=== PATIENT | female | born 1955 | race Caucasian/White ===

== ENCOUNTER 2018-07-21 13:29 | Emergency (ER) | payer OTHER, SELFPAY ==
[2018-07-21 13:36] VITALS: BP 105/53; PULSE 60; RESP 12; TEMP 36.3; O2SAT 98
--- NOTE | 2018-07-21 13:58 | ED.ALLEREA ---
HPI - Allergic Reaction General Chief complaint: Allergic Reaction Stated complaint: hives since 06/14, sob, swelling, CHF Time Seen by Provider: 07/21/18 13:57 Source: patient Mode of arrival: ambulatory Limitations: no limitations History of Present Illness HPI narrative: Patient is a 62-year-old female here for evaluation of hives. She states she has had the hives for several weeks if not months now. She has been on Benadryl. She states that last year at this time when she was in [place] she had similar symptoms. They went away. She stated that the hives have come back. Has occasional times were she is short of breath. She states the hives are very uncomfortable and painful and itching. She tried to contact her primary doctor however the [facility] has not contacted her back. She did state that there was a consult in for her to see Dermatology but has not seen them to this point. Related Data Home Medications Medication Instructions Recorded Confirmed Vitamin D3 1 cap PO DAILY 07/21/18 07/21/18 albuterol sulfate 1 puff INHALATION PRN PRN 07/21/18 07/21/18 aspirin 81 mg PO DAILY 07/21/18 07/21/18 fluoxetine 40 mg PO QPM 07/21/18 07/21/18 furosemide 40 mg PO DAILY 07/21/18 07/21/18 gabapentin 300 mg PO DAILY PRN 07/21/18 07/21/18 metoprolol tartrate 25 mg PO BID 07/21/18 07/21/18 multivitamin 1 tab PO DAILY 07/21/18 07/21/18 pantoprazole 40 mg PO DAILY 07/21/18 07/21/18 potassium chloride 10 meq PO DAILY 07/21/18 07/21/18 vitamin E 1 cap PO DAILY 07/21/18 07/21/18 Previous Rx's Medication Instructions Recorded prednisone 20 mg PO DAILY #35 tab 07/21/18 Allergies Allergy/AdvReac Type Severity Reaction Status Date / Time Lisinopril Allergy Unknown Uncoded 08/26/17 13:07 Review of Systems Constitutional Denies fever(s) and Denies headache(s) ENT Ears, Nose, Mouth, and Throat: Denies headache(s), Denies throat swelling and Denies tongue swelling Cardiovascular Reports chest pain and Reports dyspnea Respiratory Reports dyspnea Gastrointestinal Gastrointestinal: Denies abdominal pain, Denies nausea and Denies vomiting Musculoskeletal Reports myalgias and Reports arthralgias Integumentary/Breasts Denies dry skin, Reports pruritus, Denies lesions, Reports erythema, Reports rash and Reports sores Neurologic Denies headache(s) Hematologic/Lymphatic Denies easy bleeding and Denies easy bruising Allergic/Immunologic Reports urticaria, Denies throat swelling and Denies tongue swelling PFSH Medical History Hypertension (Acute) Social History lives independently: Yes Social History lives independently: Yes Exam Initial Vital Signs Initial Vital Signs: Vital Signs Temperature 97.4 F L 07/21/18 13:36 Pulse Rate 60 07/21/18 13:36 Respiratory Rate 12 07/21/18 13:36 Blood Pressure 105/53 L 07/21/18 13:36 Pulse Oximetry 98 07/21/18 13:36 Const General: cooperative, healthy appearing, well developed, well groomed and No acute distress Orientation: alert, awake and oriented x3 HENMT Head: normal to inspection and normocephalic Resp Effort & Inspection: normal respiratory effort Auscultation: clear to auscultation bilaterally Cardio Rate: regular rate Rhythm: regular rhythm GI Inspection: non-distended Palpation: soft Back/Spine/Pelvis Back: No CVA tenderness Skin Other: Patient with very well-defined hives. Located mostly on the bilateral forearms on the palms of the hands. No blistering. Neuro General: alert, awake and oriented x3 Extrem General: capillary refill normal Course Orders Ordered: ED Orders 07/21/18 14:00 Basic Metabolic Panel Stat Complete Blood Count AUTO DIFF Stat Thyroid Stimulating Hormone Stat Discontinued Medications Diphenhydramine HCl (Benadryl) 25 mg IV NOW ONE Stop: 07/21/18 14:24 Last Admin: 07/21/18 14:43 Dose: 25 mg Methylprednisolone (Solu-Medrol 125 Mg Vial) 125 mg IV NOW ONE Stop: 07/21/18 14:24 Last Admin: 07/21/18 14:43 Dose: 125 mg Vital Signs - 8 hr 07/21/18 13:36 07/21/18 15:30 07/21/18 16:11 Temperature 97.4 F L 97.3 F L Pulse Rate 60 75 67 Respiratory Rate 12 16 16 Blood Pressure 105/53 L 115/60 Blood Pressure [Left Arm] 117/48 L Pulse Oximetry 98 98 96 MDM - Allergic Reaction Lab Data Attestation: I reviewed the patient's lab results. Result diagrams: 07/21/18 14:00 07/21/18 14:00 Lab Results 07/21/18 07/21/18 07/21/18 Range/Units 14:00 14:00 14:00 WBC 6.1 (4.5-11.0) X10^3/uL RBC 4.67 (4.0-5.2) X10^6/uL Hgb 14.1 (12.0-16.0) g/dL Hct 42.3 (36-46) % MCV 90.4 (80-100) fL MCH 30.1 (26-34) PG MCHC 33.3 (30-36) % RDW 12.5 (11.6-14.8) % Plt Count 243 (150-400) X10^3/uL Neut % (Auto) 57.5 (50-75) % Lymph % (Auto) 32.9 (25-40) % Haines % (Auto) 7.3 (3-14) % Eos % (Auto) 1.8 L (2-4) % Baso % (Auto) 0.5 (0-2) % Neut # (Auto) 3500 (6195-7697) /uL Lymph # (Auto) 2000 (8766-1827) /uL Haines # (Auto) 400 (0-900) /uL Eos # (Auto) 100 (0-450) /uL Baso # (Auto) 0 (0-100) /uL Sodium 139 (137-145) mmol/L Potassium 3.6 (3.4-5.1) mmol/L Chloride 104 (98-107) mmol/L Carbon Dioxide 24 (22-32) mmol/L BUN 19 H (7-17) mg/dL Creatinine 0.80 (0.52-1.04) mg/dL Estimated GFR > 60.0 (>60) mL/min BUN/Creatinine Ratio 23.8 H (6-22) Glucose 90 (80-110) mg/dL Calcium 9.2 (8.4-10.2) mg/dL TSH 1.27 (0.47-4.68) uIU/mL ECG Data Attestation: I personally reviewed and interpreted this ECG as follows: Prior ECG tracings: not available for review Interpretation: Sinus rhythm the ventricular rate is 63 Normal QRS Normal QTC No ST T wave changes MDM Narrative Medical decision making narrative: Patient not in respiratory distress. Has had the eyes for several weeks. No new contacts. Had similar symptoms beginning last year however she was not in the local area during this time. Has been using Benadryl at home and also Atarax which she states has not been improving her symptoms. She states that the rash appears in certain areas and then goes away and appears in another area. Labs unremarkable. Unsure the exact etiology however I do not feel like this is anaphylaxis. I did not give her epinephrine. She reports improvement with the steroids and Benadryl here in the ER. Will send home with a course of steroids. She will contact her primary doctor to discuss the indications for referral to see Dermatology or marble setter. She was given return precautions. She expressed understanding and agreement with plan. Discharge Plan Departure Patient Disposition: Home Clinical Impression: Urticaria Discharge Date/Time: 07/21/18 16:11 Interventions: ED Discharge Assessment Last Done: 07/21/18 16:11 Instructions: DI for Hives Activity Restrictions/Additional Instructions: Take all of your medications as directed. Call your primary care doctor to discuss the indications for referral to see Dermatology or marble setter. Return to the emergency department for any new or worsening symptoms Prescriptions: New prednisone 20 mg tablet 20 mg PO DAILY Qty: 35 RF: 0 No Action multivitamin Tablet 1 tab PO DAILY RF: 0 fluoxetine 40 mg Capsule 40 mg PO QPM RF: 0 furosemide 40 mg Tablet 40 mg PO DAILY RF: 0 potassium chloride 10 mEq Capsule, Extended Release 10 meq PO DAILY RF: 0 aspirin 81 mg Tablet,Delayed Release (Dr/Ec) 81 mg PO DAILY RF: 0 gabapentin 300 mg Capsule 300 mg PO DAILY PRN (Reason: as directed) RF: 0 albuterol sulfate 90 mcg/actuation Hfa Aerosol Inhaler 1 puff INHALATION PRN PRN (Reason: Shortness Of Breath) RF: 0 metoprolol tartrate 25 mg Tablet 25 mg PO BID RF: 0 pantoprazole [address] For Susp In Packet 40 mg PO DAILY RF: 0 Vitamin D3 1 cap PO DAILY RF: 0 vitamin E 1 cap PO DAILY RF: 0 Referrals: Daphnie Landry [Primary Care Provider] -
[2018-07-21 14:35] LABS: Add Manual Diff / Slide Review NO; Basophils Absolute Auto 0 /uL (0-100); Basophils Percent Auto 0.5 % (0-2); Eosinophils Absolute Auto 100 /uL (0-450); Eosinophils Percent Auto 1.8 % (2-4); Hematocrit 42.3 % (36-46); Hemoglobin 14.1 g/dL (12.0-16.0); Lymphocytes Absolute Auto 2000 /uL (1100-4500); Lymphocytes Percent Auto 32.9 % (25-40); Mean Corpuscular HGB Conc 33.3 % (30-36); Mean Corpuscular Hemoglobin 30.1 PG (26-34); Mean Corpuscular Volume 90.4 fL (80-100); Monocytes Absolute Auto 400 /uL (0-900); Monocytes Percent Auto 7.3 % (3-14); Neutrophils Absolute Auto 3500 /uL (1500-7000); Neutrophils Percent Auto 57.5 % (50-75); Platelet Count 243 X10^3/uL (150-400); Red Blood Cell Count 4.67 X10^6/uL (4.0-5.2); Red Cell Distribution Width 12.5 % (11.6-14.8); White Blood Cell Count 6.1 X10^3/uL (4.5-11.0)
[2018-07-21 14:40] LABS: BUN Creatinine Ratio 23.8 (6-22); Blood Urea Nitrogen 19 mg/dL (7-17); Calcium 9.2 mg/dL (8.4-10.2); Carbon Dioxide 24 mmol/L (22-32); Chloride 104 mmol/L (98-107); Estimated Glomerular Filt Rate > 60.0 mL/min (>60); Glucose 90 mg/dL (80-110); HEMOLYSIS < 15 (0-50); Potassium 3.6 mmol/L (3.4-5.1); Sodium 139 mmol/L (137-145)
[2018-07-21] MEDS: diphenhydrAMINE 50 MG/ML VIAL 25 MG IV (14:43)
[2018-07-21] MEDS: methylPREDNISolone 125 MG/2 ML VIAL IV (14:43)
[2018-07-21 15:30] VITALS: BP 117/48; PULSE 75; RESP 16; O2SAT 98
[2018-07-21 16:11] VITALS: BP 115/60; PULSE 67; RESP 16; TEMP 36.3; O2SAT 96
[2018-07-21 16:37] LABS: Thyroid Stimulating Hormone 1.27 uIU/mL (0.47-4.68)
== END 2018-07-21 16:11 | disposition home or self-care (01) ==
PROVIDERS: Emergency Provider Emergency Medicine; PCP Hospitalist
DX: L50.9 Urticaria, unspecified (principal)
CPT/HCPCS: 36591; 80048; 84443; 85025; 93005; 93010; 96374; 96375; 99282; 99284; J1200; J2930

== ENCOUNTER 2021-12-31 18:04 | Emergency (ER) | payer OTHER, SELFPAY ==
[2021-12-31 18:13] VITALS: BP 120/62; PULSE 71; RESP 18; TEMP 36.6; O2SAT 96
--- NOTE | 2021-12-31 21:09 | ED.SKABFB ---
HPI - Skin/Abscess/Foreign Bdy General Chief complaint: Skin/Abscess/Foreign Body Stated complaint: Hives all over Time Seen by Provider: 12/31/21 20:53 Source: patient Mode of arrival: Ambulatory History of Present Illness HPI narrative: Patient states she has known idiopathic urticaria. Diagnosed 1 year ago. Had symptoms for 6 years prior to diagnosis. Has had full workup for this diagnosis. No known triggers recently. Patient here visiting from [place] but is moving back to the [facility]. She is originally from here. Patient states symptoms started this past . Hives coming and going different parts of the body. No oral swelling tongue swelling drooling or trouble breathing or neck tightness. This is not new for her. She states she usually gets Solu-Medrol intramuscular as well as Benadryl intramuscular and Pepcid p.o.. Then Medrol Dosepak and Benadryl and Pepcid prescription. Patient in no distress. Related Data Home Medications Medication Instructions Recorded Confirmed Vitamin D3 1 cap PO DAILY 07/21/18 07/21/18 albuterol sulfate 90 mcg/actuation 1 puff inhalation PRN PRN 07/21/18 07/21/18 aerosol inhaler Shortness Of Breath aspirin 81 mg tablet,delayed 81 mg PO DAILY 07/21/18 07/21/18 release fluoxetine 40 mg capsule 40 mg PO QPM 07/21/18 07/21/18 furosemide 40 mg tablet 40 mg PO DAILY 07/21/18 07/21/18 gabapentin 300 mg capsule 300 mg PO DAILY PRN as directed 07/21/18 07/21/18 metoprolol tartrate 25 mg tablet 25 mg PO BID 07/21/18 07/21/18 multivitamin 1 tab PO DAILY 07/21/18 07/21/18 pantoprazole 40 mg granules 40 mg PO DAILY 07/21/18 07/21/18 delayed-release for susp in packet potassium chloride 10 mEq 10 meq PO DAILY 07/21/18 07/21/18 capsule,extended release vitamin E 1 cap PO DAILY 07/21/18 07/21/18 Previous Rx's Medication Instructions Recorded prednisone 20 mg tablet 20 mg PO DAILY #35 tabs 07/21/18 diphenhydramine HCl 25 mg capsule 25 mg PO TID PRN allergic reaction 12/31/21 #20 caps famotidine 20 mg tablet (Pepcid) 20 mg PO BID #20 tabs 12/31/21 methylprednisolone 4 mg tablets in See Rx Instructions PO .COMPLEX 12/31/21 a dose pack (Medrol (Damián)) #21 ea Allergies Allergy/AdvReac Type Severity Reaction Status Date / Time Lisinopril Allergy Unknown Uncoded 12/31/21 18:16 Review of Systems Review of Systems Narrative: GENERAL: Denies chills, fatigue, malaise, fever, sweats. HEENT: Denies sinus pain, ear pain, sore throat RESPIRATORY: Denies dyspnea, cough CARDIOVASCULAR: Denies chest pain, palpitations GASTROINTESTINAL: Denies nausea, vomiting, abdominal pain : Denies dysuria, frequency, hematuria MUSCULOSKELETAL: denies muscle or bony pain SKIN: Positive for itching and rash, negative skin lesions NEUROLOGIC: Denies weakness, numbness ROS Unobtainable: All systems reviewed & are unremarkable except as noted in HPI and below Patient History Medical History Hypertension Social History lives independently: Yes Smoking Status: Current every day smoker Smoking Status: Current every day smoker Alcohol type: other Substance Use Type: does not use Exam Narrative Exam Narrative: GENERAL: in no distress, not toxic not dyspneic HEAD: Normocephalic. EYES: Pupils equal round No scleral icterus. ENT: Mucous membranes moist. No tongue lip or oral swelling. No drooling. No tongue elevation. NECK: Trachea midline. CARDIOVASCULAR: Regular rate and rhythm without murmurs RESPIRATORY: Clear to auscultation. Breath sounds equal bilaterally. No wheezes, rales, or rhonchi. Speaking full sentences. No respiratory distress GASTROINTESTINAL: Abdomen soft, non-tender EXTREMITIES: No gross deformities. NEURO: AOx4. SKIN: Warm and dry, I do see a few hives on the thighs. None on the back. None on the arms. None on the face. PSYCH: Not anxious, is cooperative Initial Vital Signs Initial Vital Signs: Vital Signs Temperature 98 F 12/31/21 18:13 Pulse Rate 71 12/31/21 18:13 Respiratory Rate 18 12/31/21 18:13 Blood Pressure 120/62 12/31/21 18:13 Pulse Oximetry 96 12/31/21 18:13 Oxygen Delivery Method 12/31/21 18:13 Course Course Course Narrative: No new issues during her stay Orders Ordered: Discontinued Medications Diphenhydramine HCl (Diphenhydramine 50 Mg/Ml Vial) 50 mg IM NOW ONE Stop: 12/31/21 21:08 Last Admin: 12/31/21 21:15 Dose: 50 mg Documented By: LAMAR Famotidine (Famotidine 20 Mg Tablet) 20 mg PO NOW ONE Stop: 12/31/21 21:09 Last Admin: 12/31/21 21:15 Dose: 20 mg Documented By: LAMAR Methylprednisolone (Methylprednisolone 125 Mg/2 Ml Vial) 125 mg IM NOW ONE Stop: 12/31/21 21:08 Last Admin: 12/31/21 21:15 Dose: 125 mg Documented By: LAMAR Reevaluation(s) Reevaluation #1: Patient agrees no laboratory studies indicated. She does not want IV. She states her usual cocktail works that she stated in the HPI. Return precautions reviewed with her. She has family at bedside Time: 21:16 Vital Signs Vital signs: Vital Signs - 8 hr 12/31/21 18:13 Temperature 98 F Pulse Rate 71 Respiratory Rate 18 Blood Pressure 120/62 Pulse Oximetry 96 Oxygen Delivery Method Room Air MDM - Skin/Abscess/Foreign Bdy Differential Diagnosis Differential diagnosis: Likely viral exanthem, urticaria, allergic reaction to drug, cellulitis, eczema, insect bites and contact dermatitis MDM Narrative Medical decision making narrative: Appropriate for discharge home. No laboratory studies indicated. Patient has been fully worked up in the past for idiopathic urticaria. She has known regimen for improving her symptoms. Return precautions reviewed with her. Prescriptions provided. Not toxic at discharge. Exam otherwise reassuring Discharge Plan Departure Patient Disposition: Home Clinical Impression: Idiopathic urticaria Instructions: DI for Hives Activity Restrictions/Additional Instructions: See family doctor in a week for re-evaluation. Prescriptions have been sent to your [place] pharmacy to be picked up tomorrow morning to resume. Return if worse if any questions concerns or any trouble breathing or any swelling in the mouth or lips or tongue. Prescriptions: New methylprednisolone [Medrol (Damián)] 4 mg tablets,dose pack See Rx Instructions .ROUTE .COMPLEX Qty: 21 0RF Rx Instructions: orally per package directions diphenhydramine HCl 25 mg capsule 25 mg PO TID PRN (Reason: allergic reaction) Qty: 20 0RF famotidine [Pepcid] 20 mg tablet 20 mg PO BID Qty: 20 0RF No Action multivitamin Tablet 1 tab PO DAILY fluoxetine 40 mg Capsule 40 mg PO QPM furosemide 40 mg Tablet 40 mg PO DAILY potassium chloride 10 mEq Capsule, Extended Release 10 meq PO DAILY aspirin 81 mg Tablet,Delayed Release (Dr/Ec) 81 mg PO DAILY gabapentin 300 mg Capsule 300 mg PO DAILY PRN (Reason: as directed) albuterol sulfate 90 mcg/actuation Hfa Aerosol Inhaler 1 puff INHALATION PRN PRN (Reason: Shortness Of Breath) metoprolol tartrate 25 mg Tablet 25 mg PO BID pantoprazole [address] For Susp In Packet 40 mg PO DAILY Vitamin D3 1 cap PO DAILY vitamin E 1 cap PO DAILY prednisone 20 mg tablet 20 mg PO DAILY Qty: 35 0RF Rx Instructions: Take 3 tabs PO QD for 5 days then 2 tabs PO QD for 5 days the n1 tab Po QD for 5 days then 1/2 tab PO QD for 5 days Referrals: Daphnie Landry MD [Primary Care Provider] - Visit Report Forms: Patient Portal/API
[2021-12-31] MEDS: FAMOTIDINE 20 MG TABLET PO (21:15)
[2021-12-31] MEDS: diphenhydrAMINE 50 MG/ML VIAL IM (21:15)
[2021-12-31] MEDS: methylPREDNISolone 125 MG/2 ML VIAL IM (21:15)
== END 2021-12-31 21:25 | disposition home or self-care (01) ==
PROVIDERS: Emergency Provider Emergency Medicine; PCP Hospitalist
DX: L50.1 Idiopathic urticaria (principal)
CPT/HCPCS: 96372; 99283; A9270; J1200; J2930

== ENCOUNTER 2023-03-21 12:46 | Emergency (ER) | payer OTHER, SELFPAY ==
[2023-03-21 13:16] VITALS: BP 110/60; PULSE 68; RESP 20; TEMP 36.9; O2SAT 96; BMI 31.7
--- NOTE | 2023-03-21 15:12 | ED_ITS ---
HPI - Skin/Abscess/Foreign Bdy General Chief complaint: Skin/Abscess/Foreign Body Stated complaint: HIVES Time Seen by Provider: 03/21/23 15:12 Source: patient Mode of arrival: Ambulatory Limitations: no limitations History of Present Illness HPI narrative: Patient 67-year-old female history of idiopathic urticaria presents today with urticaria ongoing for 1 week. She is been taking all the urpt-sco-mmylswq medi cations she has previously. She is been here twice before and received Solu- Medrol IM. She is requesting Solu-Medrol IM [facility] prescription for prednisone. She has no shortness of breath difficulty breathing tongue swelling or other symptoms Related Data Home Medications Medication Instructions Recorded Confirmed Vitamin D3 1 cap PO DAILY 07/21/18 07/21/18 albuterol sulfate 90 mcg/actuation 1 puff inhalation PRN PRN 07/21/18 07/21/18 aerosol inhaler Shortness Of Breath aspirin 81 mg tablet,delayed 81 mg PO DAILY 07/21/18 07/21/18 release fluoxetine 40 mg capsule 40 mg PO QPM 07/21/18 07/21/18 furosemide 40 mg tablet 40 mg PO DAILY 07/21/18 07/21/18 gabapentin 300 mg capsule 300 mg PO DAILY PRN as directed 07/21/18 07/21/18 metoprolol tartrate 25 mg tablet 25 mg PO BID 07/21/18 07/21/18 multivitamin 1 tab PO DAILY 07/21/18 07/21/18 pantoprazole 40 mg granules 40 mg PO DAILY 07/21/18 07/21/18 delayed-release for susp in packet potassium chloride 10 mEq 10 meq PO DAILY 07/21/18 07/21/18 capsule,extended release vitamin E 1 cap PO DAILY 07/21/18 07/21/18 Previous Rx's Medication Instructions Recorded prednisone 20 mg tablet 20 mg PO DAILY #35 tabs 07/21/18 diphenhydramine HCl 25 mg capsule 25 mg PO TID PRN allergic reaction 12/31/21 #20 caps famotidine 20 mg tablet (Pepcid) 20 mg PO BID #20 tabs 12/31/21 methylprednisolone 4 mg tablets in See Rx Instructions PO .COMPLEX 12/31/21 a dose pack (Medrol (Damián)) #21 ea prednisone 20 mg tablet 40 mg (2 x 20 mg) PO DAILY #10 tabs 03/21/23 Allergies Allergy/AdvReac Type Severity Reaction Status Date / Time Lisinopril Allergy Unknown Uncoded 03/21/23 13:23 Patient History Medical History Hypertension Social History lives independently: Yes Smoking Status: Current every day smoker Smoking Status: Current every day smoker Alcohol type: other Substance Use Type: does not use Exam Initial Vital Signs Initial Vital Signs: Vital Signs Temperature 98.4 F 03/21/23 13:16 Pulse Rate 68 03/21/23 13:16 Respiratory Rate 20 03/21/23 13:16 Blood Pressure 110/60 03/21/23 13:16 Pulse Oximetry 96 03/21/23 13:16 Oxygen Delivery Method Room Air 03/21/23 13:16 GENERAL: Alert well-appearing 67-year-old female CARDIOVASCULAR: peripheral pulses in tact, cap refill <2 sec RESPIRATORY: No respiratory distress, speaks in full sentences without difficulty, no stridor no obvious tongue swelling or lip swelling EXTREMITIES: Normal range of motion, no clubbing or edema. Neurovascularly intact NEUROLOGICAL: Cranial nerves II through XII grossly intact. Normal gait and speech. SKIN: Urticaria noted on arms and now Course Orders Ordered: Discontinued Medications Methylprednisolone (Methylprednisolone 125 Mg/2 Ml Vial) 125 mg IM NOW ONE Stop: 03/21/23 15:18 Last Admin: 03/21/23 15:28 Dose: Not Given Documented By: JAYNE Methylprednisolone (Methylprednisolone 125 Mg/2 Ml Vial) 60 mg IM NOW ONE Stop: 03/21/23 15:22 Last Admin: 03/21/23 15:32 Dose: 60 mg Documented By: KF Vital Signs Vital signs: Vital Signs - 8 hr 03/21/23 13:16 Temperature 98.4 F Pulse Rate 68 Respiratory Rate 20 Blood Pressure 110/60 Pulse Oximetry 96 Oxygen Delivery Method Room Air MDM - Skin/Abscess/Foreign Bdy MDM Narrative Medical decision making narrative: Patient is 67-year-old female who presents with idiopathic urticaria she is had this many times in the past. Requesting prednisone and Solu-Medrol. She rep orts it prednisone does not always work. She had Solu-Medrol IM. No evidence of anaphylaxis. Discharge Plan Departure Patient Disposition: Home Clinical Impression: Urticaria Instructions: DI for Hives Activity Restrictions/Additional Instructions: *You have been diagnosed with urticaria *What to do: Continue taking all pulp-tla-kusumnx medications as previously *Continue to take medications as directed Prednisone 40 mg once a day for 5 days--> [facility] *Follow up with your primary care provider in 2-3 days or call [phone] *Return to ER if you should have increased difficulty breathing worsening hives fever or any new, worsening or concerning symptoms Prescriptions: New prednisone 20 mg tablet 40 mg PO DAILY Qty: 10 0RF No Action multivitamin Tablet 1 tab PO DAILY fluoxetine 40 mg Capsule 40 mg PO QPM furosemide 40 mg Tablet 40 mg PO DAILY potassium chloride 10 mEq Capsule, Extended Release 10 meq PO DAILY aspirin 81 mg Tablet,Delayed Release (Dr/Ec) 81 mg PO DAILY gabapentin 300 mg Capsule 300 mg PO DAILY PRN (Reason: as directed) albuterol sulfate 90 mcg/actuation Hfa Aerosol Inhaler 1 puff INHALATION PRN PRN (Reason: Shortness Of Breath) metoprolol tartrate 25 mg Tablet 25 mg PO BID pantoprazole [address] For Susp In Packet 40 mg PO DAILY Vitamin D3 1 cap PO DAILY vitamin E 1 cap PO DAILY prednisone 20 mg tablet 20 mg PO DAILY Qty: 35 0RF Rx Instructions: Take 3 tabs PO QD for 5 days then 2 tabs PO QD for 5 days the n1 tab Po QD for 5 days then 1/2 tab PO QD for 5 days methylprednisolone [Medrol (Damián)] 4 mg tablets,dose pack See Rx Instructions .ROUTE .COMPLEX Qty: 21 0RF Rx Instructions: orally per package directions diphenhydramine HCl 25 mg capsule 25 mg PO TID PRN (Reason: allergic reaction) Qty: 20 0RF famotidine [Pepcid] 20 mg tablet 20 mg PO BID Qty: 20 0RF Referrals: Miscellaneous,Doctor, MD [Primary Care Provider] - Stand Alone Forms: Patient Portal/API
[2023-03-21] MEDS: methylPREDNISolone 125 MG/2 ML VIAL 60 MG IM (15:32)
== END 2023-03-21 15:38 | disposition home or self-care (01) ==
PROVIDERS: Emergency Provider Emergency Medicine
DX: L50.9 Urticaria, unspecified (principal)
CPT/HCPCS: 96372; 99283; J2930

== ENCOUNTER 2023-03-29 12:41 | Emergency (ER) | payer OTHER, SELFPAY ==
[2023-03-29] VITALS (10 sets, daily range): BP systolic 106–137; BP diastolic 55–66; PULSE 67–79; RESP 14–23; TEMP 36.8; O2SAT 92–99; BMI 33.4
[2023-03-29] MEDS: methylPREDNISolone 125 MG/2 ML VIAL IV (13:07)
[2023-03-29] MEDS: EPINEPHrine 1 MG/ML 0.3 MG IM (13:08)
[2023-03-29] MEDS: FAMOTIDINE 20 MG/2 ML VIAL IV (13:08)
--- NOTE | 2023-03-29 13:08 | ED.SOB ---
HPI - SOB/Dyspnea General Chief Complaint: Shortness of Breath/Dyspnea Stated Complaint: HIVES/TROUBLE SWALLOWING Time Seen by Provider: 03/29/23 12:49 Source: patient Mode of arrival: Ambulatory Limitations: no limitations History of Present Illness HPI Narrative: Patient 67-year-old female who presents with idiopathic urticaria. She was seen and evaluated by myself on March 21 that time she requested Solu-Medrol injection and prednisone prescription. She reports that it did help the urticaria went away however when the prednisone. Quickly came back. She now feels like she is having difficulty swallowing which started last night. She reports that all of her joints ache she has burning all over her skin. She actually has an appointment with Dermatology tomorrow. She reports that she feels tightness in her neck and difficulty swallowing her saliva but she seems to be managing her saliva and no obvious stridor or respiratory distress. Related Data Home Medications Medication Instructions Recorded Confirmed Vitamin D3 1 cap PO DAILY 07/21/18 07/21/18 albuterol sulfate 90 mcg/actuation 1 puff inhalation PRN PRN 07/21/18 07/21/18 aerosol inhaler Shortness Of Breath aspirin 81 mg tablet,delayed 81 mg PO DAILY 07/21/18 07/21/18 release fluoxetine 40 mg capsule 40 mg PO QPM 07/21/18 07/21/18 furosemide 40 mg tablet 40 mg PO DAILY 07/21/18 07/21/18 gabapentin 300 mg capsule 300 mg PO DAILY PRN as directed 07/21/18 07/21/18 metoprolol tartrate 25 mg tablet 25 mg PO BID 07/21/18 07/21/18 multivitamin 1 tab PO DAILY 07/21/18 07/21/18 pantoprazole 40 mg granules 40 mg PO DAILY 07/21/18 07/21/18 delayed-release for susp in packet potassium chloride 10 mEq 10 meq PO DAILY 07/21/18 07/21/18 capsule,extended release vitamin E 1 cap PO DAILY 07/21/18 07/21/18 Previous Rx's Medication Instructions Recorded prednisone 20 mg tablet 20 mg PO DAILY #35 tabs 07/21/18 diphenhydramine HCl 25 mg capsule 25 mg PO TID PRN allergic reaction 12/31/21 #20 caps famotidine 20 mg tablet (Pepcid) 20 mg PO BID #20 tabs 12/31/21 methylprednisolone 4 mg tablets in See Rx Instructions PO .COMPLEX 12/31/21 a dose pack (Medrol (Damián)) #21 ea prednisone 20 mg tablet 40 mg (2 x 20 mg) PO DAILY #10 tabs 03/21/23 prednisone 10 mg tablet 10 mg PO DAILY #30 tabs 03/29/23 Allergies Allergy/AdvReac Type Severity Reaction Status Date / Time Lisinopril Allergy Unknown Uncoded 03/29/23 12:59 Review of Systems Review of Systems ROS Unobtainable: All systems reviewed & are unremarkable except as noted in HPI and below Patient History Medical History Hypertension Social History lives independently: Yes Smoking Status: Current every day smoker Smoking Status: Current every day smoker Alcohol type: other Substance Use Type: does not use Exam Initial Vital Signs Initial Vital Signs: Vital Signs Temperature 98.3 F 03/29/23 12:52 Pulse Rate 67 03/29/23 12:52 Respiratory Rate 20 03/29/23 12:52 Blood Pressure 137/63 03/29/23 12:52 Pulse Oximetry 92 03/29/23 12:52 Oxygen Delivery Method Room Air 03/29/23 12:52 GENERAL: Alert 67-year-old female and in no acute distress. HEENT: Head atraumatic,EOMI, pupils reactive, face symmetric, moist mucous membranes PHARYNX: No uvula swelling no tongue swollen managing secretions CARDIOVASCULAR: Regular rate and rhythm without murmurs, rubs or gallops. RESPIRATORY: Breath sounds equal bilaterally, no wheezes rales or rhonchi. ABDOMEN: Soft, nontender. Normoactive bowel sounds all 4 quadrants. No guarding or rebound. EXTREMITIES: Normal range of motion, no clubbing or edema. Neurovascularly intact NEUROLOGICAL: Alert and oriented x4. SKIN: Diffuse hives all over body blanchable no petechiae no vesicles Course Orders Ordered: ED Orders 03/29/23 12:55 CBC Auto Diff [Complete Blood Count AUTO DIFF] Stat CMP [Comprehensive Metabolic Panel] Stat Discontinued Medications Epinephrine HCl (Epinephrine 1 Mg/Ml) 0.3 mg IM NOW ONE Stop: 03/29/23 13:01 Last Admin: 03/29/23 13:08 Dose: 0.3 mg Documented By: DAPHNE Famotidine (Famotidine 20 Mg/2 Ml Vial) 20 mg IV NOW BETHANY Last Admin: 03/29/23 13:08 Dose: 20 mg Documented By: DAPHNE Methylprednisolone (Methylprednisolone 125 Mg/2 Ml Vial) 125 mg IV NOW ONE Stop: 03/29/23 13:01 Last Admin: 03/29/23 13:07 Dose: 125 mg Documented By: DAPHNE Vital Signs Vital signs: Vital Signs - 8 hr 03/29/23 12:52 03/29/23 12:55 03/29/23 12:55 Temperature 98.3 F Pulse Rate 67 67 Respiratory Rate 20 20 Blood Pressure 137/63 117/61 Pulse Oximetry 92 97 Oxygen Delivery Method Room Air 03/29/23 13:00 03/29/23 13:00 03/29/23 13:15 Temperature Pulse Rate 69 72 Respiratory Rate 14 20 Blood Pressure 117/66 Pulse Oximetry 99 97 Oxygen Delivery Method 03/29/23 13:15 03/29/23 13:30 03/29/23 13:30 Temperature Pulse Rate 69 Respiratory Rate 20 Blood Pressure 123/65 116/63 Pulse Oximetry 95 Oxygen Delivery Method 03/29/23 13:45 03/29/23 13:45 03/29/23 14:00 Temperature Pulse Rate 79 Respiratory Rate 23 Blood Pressure 118/59 L 106/55 L Pulse Oximetry 96 Oxygen Delivery Method 03/29/23 14:00 03/29/23 14:15 03/29/23 14:15 Temperature Pulse Rate 74 77 Respiratory Rate 20 19 Blood Pressure 109/56 L Pulse Oximetry 93 94 Oxygen Delivery Method 03/29/23 14:30 03/29/23 14:30 03/29/23 14:45 Temperature Pulse Rate 75 74 Respiratory Rate 18 17 Blood Pressure 117/58 L Pulse Oximetry 92 Oxygen Delivery Method 03/29/23 14:45 Temperature Pulse Rate Respiratory Rate Blood Pressure 115/55 L Pulse Oximetry Oxygen Delivery Method MDM - SOB/Dyspnea Lab Data 03/29/23 12:55 03/29/23 12:55 Labs: Lab Results 03/29/23 Range/Units 12:55 WBC 14.5 H (4.5-11.0) X10^3/uL RBC 5.09 (4.0-5.2) X10^6/uL Hgb 16.0 (12.0-16.0) g/dL Hct 47.1 H (36-46) % MCV 92.6 (80-100) fL MCH 31.4 (26-34) PG MCHC 34.0 (30-36) % RDW 13.0 (11.6-14.8) % Plt Count 274 (150-400) X10^3/uL Neut % (Auto) 80.3 H (50-75) % Lymph % (Auto) 13.8 L (25-40) % [place] % (Auto) 4.9 (3-14) % Eos % (Auto) 0.6 L (2-4) % Baso % (Auto) 0.4 (0-2) % Neut # (Auto) 71440 H (7401-1430) /uL Lymph # (Auto) 2000 (2367-4010) /uL [place] # (Auto) 700 (0-900) /uL Eos # (Auto) 100 (0-450) /uL Baso # (Auto) 100 (0-100) /uL Sodium 134 L (137-145) mmol/L Potassium 4.3 (3.4-5.1) mmol/L Chloride 102 (98-107) mmol/L Carbon Dioxide 25 (22-32) mmol/L BUN 20 H (7-17) mg/dL Creatinine 0.80 (0.52-1.04) mg/dL Estimated GFR > 60 (>60) mL/min BUN/Creatinine Ratio 25.0 H (6-22) Glucose 108 (80-110) mg/dL Calcium 9.0 (8.4-10.2) mg/dL Total Bilirubin 0.8 (0.2-1.3) mg/dL AST 27 (14-36) IU/L ALT 23 (<35) IU/L Alkaline Phosphatase 101 (38-126) U/L Total Protein 7.4 (6.3-8.2) g/dL Albumin 4.3 (3.5-5.0) g/dL Globulin 3.1 (1.7-4.1) g/dL Albumin/Globulin Ratio 1.4 (1.0-2.8) MDM Narrative Medical decision making narrative: Patient is 67-year-old female who presents today with hives and urticaria. She reports that they did improve after prednisone however quickly turned. She is compliant with Dermatology has an appointment. She feels like she is having swelling and difficulty swallowing. For this reason she is getting epinephrine Solu-Medrol and Pepcid. Her hives remain but the breathing and tightness in her throat improve after epinephrine. She feels better. We discussed her long-term prednisone he is not ideal and can have serious side effects. Labs have been reviewed leukocytosis unlikely infectious. Electrolytes are stable sodium slightly low 134 but others are within normal limits. Discharge Plan Departure Patient Disposition: Home Clinical Impression: Chronic idiopathic urticaria Instructions: DI for Hives Activity Restrictions/Additional Instructions: *You have been diagnosed with acute on chronic urticaria *What to do: *Continue to take medications as directed--> [facility] Prednisone 40 mg once a day for 3 days, 30 mg once a day for 3 days, 20 mg once a day for 3 days, 10 mg once a day for 3 days *Follow up with your primary care provider in 2-3 days or call [phone] Follow-up with dermatology tomorrow *Return to ER if you should have difficulty breathing or any new, worsening or concerning symptoms Prescriptions: New prednisone 10 mg tablet 10 mg PO DAILY Qty: 30 0RF Rx Instructions: day 1-3: 40 mg once a day day 4-6: 30 mg once a day day 7-9: 20 mg once a day day 10-12: 10 mg once a day No Action multivitamin Tablet 1 tab PO DAILY fluoxetine 40 mg Capsule 40 mg PO QPM furosemide 40 mg Tablet 40 mg PO DAILY potassium chloride 10 mEq Capsule, Extended Release 10 meq PO DAILY aspirin 81 mg Tablet,Delayed Release (Dr/Ec) 81 mg PO DAILY gabapentin 300 mg Capsule 300 mg PO DAILY PRN (Reason: as directed) albuterol sulfate 90 mcg/actuation Hfa Aerosol Inhaler 1 puff INHALATION PRN PRN (Reason: Shortness Of Breath) metoprolol tartrate 25 mg Tablet 25 mg PO BID pantoprazole [address] For Susp In Packet 40 mg PO DAILY Vitamin D3 1 cap PO DAILY vitamin E 1 cap PO DAILY prednisone 20 mg tablet 20 mg PO DAILY Qty: 35 0RF Rx Instructions: Take 3 tabs PO QD for 5 days then 2 tabs PO QD for 5 days the n1 tab Po QD for 5 days then 1/2 tab PO QD for 5 days methylprednisolone [Medrol (Damián)] 4 mg tablets,dose pack See Rx Instructions .ROUTE .COMPLEX Qty: 21 0RF Rx Instructions: orally per package directions diphenhydramine HCl 25 mg capsule 25 mg PO TID PRN (Reason: allergic reaction) Qty: 20 0RF famotidine [Pepcid] 20 mg tablet 20 mg PO BID Qty: 20 0RF prednisone 20 mg tablet 40 mg PO DAILY Qty: 10 0RF Referrals: Miscellaneous,Doctor, MD [Primary Care Provider] - Stand Alone Forms: Patient Portal/API
[2023-03-29 13:11] LABS: Add Manual Diff / Slide Review NO; Basophils Absolute Auto 100 /uL (0-100); Basophils Percent Auto 0.4 % (0-2); Eosinophils Absolute Auto 100 /uL (0-450); Eosinophils Percent Auto 0.6 % (2-4); Hematocrit 47.1 % (36-46); Lymphocytes Absolute Auto 2000 /uL (1100-4500); Lymphocytes Percent Auto 13.8 % (25-40); Mean Corpuscular Hemoglobin 31.4 PG (26-34); Mean Corpuscular Volume 92.6 fL (80-100); Monocytes Absolute Auto 700 /uL (0-900); Monocytes Percent Auto 4.9 % (3-14); Neutrophils Absolute Auto 11600 /uL (1500-7000); Neutrophils Percent Auto 80.3 % (50-75); Platelet Count 274 X10^3/uL (150-400); Red Blood Cell Count 5.09 X10^6/uL (4.0-5.2); White Blood Cell Count 14.5 X10^3/uL (4.5-11.0)
[2023-03-29 13:15] LABS: Alanine Aminotransferase 23 IU/L (<35); Albumin 4.3 g/dL (3.5-5.0); Albumin Globulin Ratio 1.4 (1.0-2.8); Alkaline Phosphatase 101 U/L (38-126); Aspartate Aminotransferase 27 IU/L (14-36); Bilirubin Total 0.8 mg/dL (0.2-1.3); Blood Urea Nitrogen 20 mg/dL (7-17); Carbon Dioxide 25 mmol/L (22-32); Chloride 102 mmol/L (98-107); Estimated Glomerular Filt Rate > 60 mL/min (>60); Globulin 3.1 g/dL (1.7-4.1); Glucose 108 mg/dL (80-110); Sodium 134 mmol/L (137-145); Total Protein 7.4 g/dL (6.3-8.2)
[2023-03-29 13:23] LABS: HEMOLYSIS 116 (0-50)
[2023-03-29 13:24] LABS: Potassium 4.3 mmol/L (3.4-5.1)
--- NOTE | 2023-03-29 14:07 | PC.NURSE ---
pt stated that was beginning to feel better. Rash still appears on arms hands an feet, but pt states that she is no longer itchy.
== END 2023-03-29 14:50 | disposition home or self-care (01) ==
PROVIDERS: Emergency Provider Emergency Medicine
DX: L50.1 Idiopathic urticaria (principal); Z79.899 Other long term (current) drug therapy
CPT/HCPCS: 36415; 80053; 85025; 96372; 96374; 96375; 99284; J0171; J2930

== ENCOUNTER 2023-04-13 11:13 | Emergency (ER) | payer OTHER, SELFPAY ==
[2023-04-13] VITALS (11 sets, daily range): BP systolic 118–136; BP diastolic 56–70; PULSE 88–108; RESP 16–24; TEMP 36.6–37.1; O2SAT 93–99; BMI 31.8
--- NOTE | 2023-04-13 11:25 | DI.RAD.S_ITS ---
PROCEDURE: XR CHEST 1V INDICATIONS: chest pain TECHNIQUE: One view of the chest was acquired. COMPARISON: [facility], , CHEST 1 VIEW, 04/19/2009, 21:54. FINDINGS: Surgical changes and devices: None. Lungs and pleura: Lungs are clear. No pleural effusions or pneumothorax. Mediastinum: Mediastinal contours appear normal. Heart size is at the upper limits of normal, stable. Bones and chest wall: No suspicious bony lesions. Overlying soft tissues appear unremarkable. IMPRESSION: 1. No acute cardiopulmonary process. 2. Heart size is at the upper limits of normal, stable. Dictated by: Stephanie Boo M.D. on 04/13/2023 at 12:11 Approved by: Stephanie Boo M.D. on 04/13/2023 at 12:13
[2023-04-13] MEDS: DEXAMETHASONE 10 MG/ML VIAL IV (11:31)
[2023-04-13] MEDS: FAMOTIDINE 20 MG/2 ML VIAL IV (11:31)
[2023-04-13] MEDS: diphenhydrAMINE 50 MG/ML VIAL IV (11:31)
[2023-04-13 11:33] LABS: Add Manual Diff / Slide Review NO; Basophils Absolute Auto 0 /uL (0-100); Basophils Percent Auto 0.2 % (0-2); Eosinophils Absolute Auto 100 /uL (0-450); Eosinophils Percent Auto 0.5 % (2-4); Hematocrit 47.2 % (36-46); Hemoglobin 15.9 g/dL (12.0-16.0); Lymphocytes Absolute Auto 2000 /uL (1100-4500); Lymphocytes Percent Auto 15.8 % (25-40); Mean Corpuscular HGB Conc 33.8 % (30-36); Mean Corpuscular Hemoglobin 31.5 PG (26-34); Mean Corpuscular Volume 93.2 fL (80-100); Monocytes Absolute Auto 300 /uL (0-900); Monocytes Percent Auto 2.6 % (3-14); Neutrophils Absolute Auto 10400 /uL (1500-7000); Neutrophils Percent Auto 80.9 % (50-75); Platelet Count 257 X10^3/uL (150-400); Red Blood Cell Count 5.07 X10^6/uL (4.0-5.2); Red Cell Distribution Width 13.3 % (11.6-14.8); White Blood Cell Count 12.8 X10^3/uL (4.5-11.0)
--- NOTE | 2023-04-13 11:40 | PC.NURSE ---
Pt reports being seen in ED about 1 month ago for chronic ideopathic hives. Pt reports being given steroids, benadryl and epi and pt was discharged. pt returns today and says that the hives never fully went away and that they are the worst that she have ever had them. pt rates pain as a 10/10 that she describes as a throbbing and itching all over her body. Hives and red blotches noted bilaterally on all 4 extremities and on pt's trunk. Pt states that she is having some cp and has a hx of NM and stent. DR Grace notified.
[2023-04-13 11:44] LABS: Alanine Aminotransferase 23 IU/L (<35); Albumin 4.1 g/dL (3.5-5.0); Albumin Globulin Ratio 1.3 (1.0-2.8); Alkaline Phosphatase 100 U/L (38-126); Aspartate Aminotransferase 19 IU/L (14-36); Bilirubin Total 0.9 mg/dL (0.2-1.3); Blood Urea Nitrogen 20 mg/dL (7-17); Calcium 9.4 mg/dL (8.4-10.2); Carbon Dioxide 27 mmol/L (22-32); Chloride 97 mmol/L (98-107); Creatine Kinase < 20 U/L (30-135); Estimated Glomerular Filt Rate > 60 mL/min (>60); Globulin 3.2 g/dL (1.7-4.1); Glucose 129 mg/dL (80-110); HEMOLYSIS 17 (0-50); Potassium 3.4 mmol/L (3.4-5.1); Sodium 135 mmol/L (137-145); Total Protein 7.3 g/dL (6.3-8.2)
[2023-04-13 11:56] LABS: Troponin I < 0.012 ng/mL (0.01-0.034)
--- NOTE | 2023-04-13 11:58 | PC.NURSE ---
Pt reports that she feels slightly better after medications. Pt c/o numbness or tingling in her feet.
--- NOTE | 2023-04-13 12:31 | ED.SKABFB ---
HPI - Skin/Abscess/Foreign Bdy <Elise Iglesias PA-C - Last Filed: 04/13/23 14:59> General Chief complaint: Skin/Abscess/Foreign Body Stated complaint: hives Time Seen by Provider: 04/13/23 11:21 Source: patient Mode of arrival: Ambulatory Limitations: no limitations History of Present Illness HPI narrative: 67-year-old female with past medical history chronic idiopathic urticaria, [place] presents to the ED with ongoing urticaria for a month. Patient was seen in the ED on 03/21/2023 and 03/29/2023 for the same complaint. Patient was treated with Pepcid AC, Benadryl, steroids. Patient has had multiple rounds of prednisone with no improvement to her rash. Patient states that her rash started about a month ago since she had missed 1 of her allergy shots of Omalizumab. Patient obtains her medications from the [place] and self injects, however since she moved recently, there was a delay in getting her medications which is why she missed a dose. Patient states that she has had the chronic urticaria for 6 years, has missed a dose here and there which does flare-up her hives. However the condition was brought quickly under control with steroid shots in the ED. [facility] and self injected 5 days ago with no improvement to her rash. Patient complains of overall fatigue, not feeling well, mild nausea, epigastric pain. Patient also endorses a 20 minute episode of left-sided chest pain earlier this morning, was unable to locate her nitroglycerin, however the chest pain subsided spontaneously in 20 minutes. Patient currently is not experiencing chest pain, shortness of breath, fever, chills, vomiting, lightheadedness, dizziness, syncope. 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 Related Data Home Medications Medication Instructions Recorded Confirmed Vitamin D3 1 cap PO DAILY 07/21/18 07/21/18 albuterol sulfate 90 mcg/actuation 1 puff inhalation PRN PRN 07/21/18 07/21/18 aerosol inhaler Shortness Of Breath aspirin 81 mg tablet,delayed 81 mg PO DAILY 07/21/18 07/21/18 release fluoxetine 40 mg capsule 40 mg PO QPM 07/21/18 07/21/18 furosemide 40 mg tablet 40 mg PO DAILY 07/21/18 07/21/18 gabapentin 300 mg capsule 300 mg PO DAILY PRN as directed 07/21/18 07/21/18 metoprolol tartrate 25 mg tablet 25 mg PO BID 07/21/18 07/21/18 multivitamin 1 tab PO DAILY 07/21/18 07/21/18 pantoprazole 40 mg granules 40 mg PO DAILY 07/21/18 07/21/18 delayed-release for susp in packet potassium chloride 10 mEq 10 meq PO DAILY 07/21/18 07/21/18 capsule,extended release vitamin E 1 cap PO DAILY 07/21/18 07/21/18 Previous Rx's Medication Instructions Recorded prednisone 20 mg tablet 20 mg PO DAILY #35 tabs 07/21/18 diphenhydramine HCl 25 mg capsule 25 mg PO TID PRN allergic reaction 12/31/21 #20 caps famotidine 20 mg tablet (Pepcid) 20 mg PO BID #20 tabs 12/31/21 methylprednisolone 4 mg tablets in See Rx Instructions PO .COMPLEX 12/31/21 a dose pack (Medrol (Damián)) #21 ea prednisone 20 mg tablet 40 mg (2 x 20 mg) PO DAILY #10 tabs 03/21/23 prednisone 10 mg tablet 10 mg PO DAILY #30 tabs 03/29/23 Allergies Allergy/AdvReac Type Severity Reaction Status Date / Time Lisinopril Allergy Unknown Uncoded 03/29/23 12:59 Review of Systems <Elise Iglesias PA-C - Last Filed: 04/13/23 14:59> Constitutional Constitutional: Denies chills, Reports fatigue, Denies fever(s), Denies frequent falls, Denies lethargy and Denies weakness Eyes Eyes: Denies change in vision, Denies eye discharge, Denies irritation and Denies loss of vision ENT Ears, Nose, Mouth, and Throat: Denies change in voice, Denies dizziness, Denies neck pain, Denies sore throat and Denies throat swelling Cardiovascular Cardiovascular: Reports chest pain, Denies irregular heart rhythm, Denies lightheadedness, Denies palpitations, Denies dyspnea, Denies dyspnea on exertion and Denies orthopnea Respiratory Respiratory: Denies cough, Denies dyspnea, Denies dyspnea on exertion and Denies wheezing Gastrointestinal Gastrointestinal: Reports abdominal pain, Denies change in bowel habits, Denies diarrhea, Reports nausea and Denies vomiting Musculoskeletal Musculoskeletal: Denies neck pain and Denies numbness Integumentary/Breasts Skin/Breast: Denies pruritus, Denies erythema, Reports rash and Denies wounds Neurologic Neurologic: Denies behavioral changes, Denies confusion, Denies dizziness, Denies frequent falls, Denies loss of vision, Denies numbness and Denies weakness Psychiatric Psychiatric: Denies anxiety, Denies behavioral changes, Denies confusion, Denies depression, Denies homicidal ideation and Denies suicidal ideation Endocrine Endocrine: Reports fatigue, Denies flushing and Denies palpitations Hematologic/Lymphatic Hematologic/Lymphatic: Denies easy bruising Allergic/Immunologic Allergic/Immunologic: Denies urticaria, Denies throat swelling and Denies wheezing Patient History <Elise Iglesias PA-C - Last Filed: 04/13/23 14:59> Medical History Hypertension Social History lives independently: Yes Smoking Status: Current every day smoker Smoking Status: Current every day smoker Alcohol type: other Substance Use Type: does not use Exam <Elise Iglesias PA-C - Last Filed: 04/13/23 14:59> Narrative Exam Narrative: Const General:?cooperative, healthy appearing and comfortable [facility] Head:?normal to inspection Ears:?hearing grossly normal bilaterally Nose:?external nose normal Face and sinus:?normal facial exam and sinuses nontender Mouth:?oral mucosae normal Throat:?posterior oropharynx normal Eyes General:?appearance normal, both eyes and all related structures Neck Neck:?normal visual inspection and no lymphadenopathy noted Resp Effort & Inspection:?normal respiratory effort Auscultation:?clear to auscultation bilaterally Cardio Rate:?regular rate Rhythm:?regular rhythm Integumentary Diffuse hives from head to toe, sparing mucous membranes. No angioedema, throat swelling, trouble breathing. No signs of bacterial infection. Neuro General:?patient alert, patient awake and patient oriented x3 Initial Vital Signs Initial Vital Signs: Vital Signs Blood Pressure 136/70 04/13/23 11:17 <Marry Grace MD - Last Filed: 04/13/23 15:17> Initial Vital Signs Initial Vital Signs: Vital Signs Blood Pressure 136/70 11/27/23 11:17 Course <Elise Iglesias PA-C - Last Filed: 04/13/23 14:59> Orders Ordered: ED Orders 04/13/23 11:20 CBC Auto Diff [Complete Blood Count AUTO DIFF] Stat CMP [Comprehensive Metabolic Panel] Stat Troponin & CK Cardiac Panel Stat 04/13/23 11:25 Chest [XR chest 1V] Stat 04/13/23 11:27 EKG-12 Lead Stat 04/13/23 13:20 Troponin & CK Cardiac Panel Stat 04/13/23 14:04 EKG-12 Lead Stat Discontinued Medications Dexamethasone (Dexamethasone 10 Mg/Ml Vial) 10 mg IV NOW ONE Stop: 04/13/23 11:26 Last Admin: 04/13/23 11:31 Dose: 10 mg Documented By: DAPHNE Diphenhydramine HCl (Diphenhydramine 50 Mg/Ml Vial) 50 mg IV NOW ONE Stop: 04/13/23 11:26 Last Admin: 04/13/23 11:31 Dose: 50 mg Documented By: DAPHNE Famotidine (Famotidine 20 Mg/2 Ml Vial) 20 mg IV NOW BETHANY Last Admin: 04/13/23 11:31 Dose: 20 mg Documented By: DAPHNE Vital Signs Vital signs: Vital Signs - 8 hr 04/13/23 11:17 04/13/23 11:18 04/13/23 11:21 Temperature 98.7 F Pulse Rate 108 H 94 H Respiratory Rate 22 Blood Pressure 136/70 136/70 Pulse Oximetry 98 98 Oxygen Delivery Method Room Air Oxygen Flow Rate 04/13/23 11:30 04/13/23 11:56 04/13/23 11:56 Temperature Pulse Rate 91 H 92 H Respiratory Rate 19 20 Blood Pressure 126/60 Pulse Oximetry 99 98 Oxygen Delivery Method Oxygen Flow Rate 04/13/23 12:00 04/13/23 12:30 04/13/23 13:00 Temperature Pulse Rate 90 89 91 H Respiratory Rate 20 19 16 Blood Pressure 126/60 Pulse Oximetry 95 95 95 Oxygen Delivery Method Oxygen Flow Rate 04/13/23 13:30 04/13/23 14:00 04/13/23 14:37 Temperature 98 F Pulse Rate 88 90 91 H Respiratory Rate 19 16 24 Blood Pressure 123/57 L 118/56 L Pulse Oximetry 93 94 Oxygen Delivery Method Room Air Oxygen Flow Rate 94 <Marry Grace MD - Last Filed: 04/13/23 15:17> Orders Ordered: ED Orders 04/13/23 11:20 CBC Auto Diff [Complete Blood Count AUTO DIFF] Stat CMP [Comprehensive Metabolic Panel] Stat Troponin & CK Cardiac Panel Stat 04/13/23 11:25 Chest [XR chest 1V] Stat 04/13/23 11:27 EKG-12 Lead Stat 04/13/23 13:20 Troponin & CK Cardiac Panel Stat 04/13/23 14:04 EKG-12 Lead Stat Discontinued Medications Dexamethasone (Dexamethasone 10 Mg/Ml Vial) 10 mg IV NOW ONE Stop: 04/13/23 11:26 Last Admin: 04/13/23 11:31 Dose: 10 mg Documented By: MPO Diphenhydramine HCl (Diphenhydramine 50 Mg/Ml Vial) 50 mg IV NOW ONE Stop: 04/13/23 11:26 Last Admin: 04/13/23 11:31 Dose: 50 mg Documented By: MPO Famotidine (Famotidine 20 Mg/2 Ml Vial) 20 mg IV NOW BETHANY Last Admin: 04/13/23 11:31 Dose: 20 mg Documented By: MPO Vital Signs Vital signs: Vital Signs - 8 hr 04/13/23 11:17 04/13/23 11:18 04/13/23 11:21 Temperature 98.7 F Pulse Rate 108 H 94 H Respiratory Rate 22 Blood Pressure 136/70 136/70 Pulse Oximetry 98 98 Oxygen Delivery Method Room Air Oxygen Flow Rate 04/13/23 11:30 04/13/23 11:56 04/13/23 11:56 Temperature Pulse Rate 91 H 92 H Respiratory Rate 19 20 Blood Pressure 126/60 Pulse Oximetry 99 98 Oxygen Delivery Method Oxygen Flow Rate 04/13/23 12:00 04/13/23 12:30 04/13/23 13:00 Temperature Pulse Rate 90 89 91 H Respiratory Rate 20 19 16 Blood Pressure 126/60 Pulse Oximetry 95 95 95 Oxygen Delivery Method Oxygen Flow Rate 04/13/23 13:30 04/13/23 14:00 04/13/23 14:37 Temperature 98 F Pulse Rate 88 90 91 H Respiratory Rate 19 16 24 Blood Pressure 123/57 L 118/56 L Pulse Oximetry 93 94 Oxygen Delivery Method Room Air Oxygen Flow Rate 94 MDM - Skin/Abscess/Foreign Bdy <YULY Mayberry Last Filed: 04/13/23 14:59> Lab Data 04/13/23 11:20 04/13/23 11:20 Labs: Lab Results 04/13/23 04/13/23 Range/Units 11:20 13:20 WBC 12.8 H (4.5-11.0) X10^3/uL RBC 5.07 (4.0-5.2) X10^6/uL Hgb 15.9 (12.0-16.0) g/dL Hct 47.2 H (36-46) % MCV 93.2 (80-100) fL MCH 31.5 (26-34) PG MCHC 33.8 (30-36) % RDW 13.3 (11.6-14.8) % Plt Count 257 (150-400) X10^3/uL Neut % (Auto) 80.9 H (50-75) % Lymph % (Auto) 15.8 L (25-40) % [place] % (Auto) 2.6 L (3-14) % Eos % (Auto) 0.5 L (2-4) % Baso % (Auto) 0.2 (0-2) % Neut # (Auto) 10025 H (5024-7455) /uL Lymph # (Auto) 2000 (2742-1126) /uL [place] # (Auto) 300 (0-900) /uL Eos # (Auto) 100 (0-450) /uL Baso # (Auto) 0 (0-100) /uL Sodium 135 L (137-145) mmol/L Potassium 3.4 (3.4-5.1) mmol/L Chloride 97 L (98-107) mmol/L Carbon Dioxide 27 (22-32) mmol/L BUN 20 H (7-17) mg/dL Creatinine 0.87 (0.52-1.04) mg/dL Estimated GFR > 60 (>60) mL/min BUN/Creatinine Ratio 23.0 H (6-22) Glucose 129 H (80-110) mg/dL Calcium 9.4 (8.4-10.2) mg/dL Total Bilirubin 0.9 (0.2-1.3) mg/dL AST 19 (14-36) IU/L ALT 23 (<35) IU/L Alkaline Phosphatase 100 (38-126) U/L Total Creatine Kinase < 20 L < 20 L (30-135) U/L Troponin I < 0.012 < 0.012 (0.01-0.034) ng/mL Total Protein 7.3 (6.3-8.2) g/dL Albumin 4.1 (3.5-5.0) g/dL Globulin 3.2 (1.7-4.1) g/dL Albumin/Globulin Ratio 1.3 (1.0-2.8) MDM Narrative Medical decision making narrative: 67-year-old female with past medical history chronic idiopathic urticaria, [place] presents to the ED with ongoing urticaria for a month. Medical exam is reassuring for no angioedema, shortness of breath, dysphagia, hives with no mucous membrane involvement. Patient's rash is most consistent with chronic urticaria. Chest pain is concerning for ACS versus gastritis versus GERD versus other. Will obtain labs, EKG, chest x-ray, troponin. Will reassess. Labs within normal limits. EKG is normal sinus rhythm, no acute ST-T changes. Troponin within normal limits. Chest x-ray without acute findings. Will repeat EKG and troponin. Repeat EKG and troponin with no acute findings. Patient's symptoms improved with the dexamethasone, Pepcid AC, Benadryl. Recommend continuing Benadryl, hydroxyzine, montelukast as prescribed. Recommend follow-up with PCP to expedite referral to Dermatology. Patient does have a EpiPen on hand to use as needed for anaphylaxis. ED return precautions discussed with patient. Patient verbalized understanding. Medical records reviewed: Yes <Marry Grace MD - Last Filed: 04/13/23 15:17> Lab Data Labs: Lab Results 04/13/23 04/13/23 Range/Units 11:20 13:20 WBC 12.8 H (4.5-11.0) X10^3/uL RBC 5.07 (4.0-5.2) X10^6/uL Hgb 15.9 (12.0-16.0) g/dL Hct 47.2 H (36-46) % MCV 93.2 (80-100) fL MCH 31.5 (26-34) PG MCHC 33.8 (30-36) % RDW 13.3 (11.6-14.8) % Plt Count 257 (150-400) X10^3/uL Neut % (Auto) 80.9 H (50-75) % Lymph % (Auto) 15.8 L (25-40) % [place] % (Auto) 2.6 L (3-14) % Eos % (Auto) 0.5 L (2-4) % Baso % (Auto) 0.2 (0-2) % Neut # (Auto) 13237 H (0059-9932) /uL Lymph # (Auto) 2000 (7172-5619) /uL [place] # (Auto) 300 (0-900) /uL Eos # (Auto) 100 (0-450) /uL Baso # (Auto) 0 (0-100) /uL Sodium 135 L (137-145) mmol/L Potassium 3.4 (3.4-5.1) mmol/L Chloride 97 L (98-107) mmol/L Carbon Dioxide 27 (22-32) mmol/L BUN 20 H (7-17) mg/dL Creatinine 0.87 (0.52-1.04) mg/dL Estimated GFR > 60 (>60) mL/min BUN/Creatinine Ratio 23.0 H (6-22) Glucose 129 H (80-110) mg/dL Calcium 9.4 (8.4-10.2) mg/dL Total Bilirubin 0.9 (0.2-1.3) mg/dL AST 19 (14-36) IU/L ALT 23 (<35) IU/L Alkaline Phosphatase 100 (38-126) U/L Total Creatine Kinase < 20 L < 20 L (30-135) U/L Troponin I < 0.012 < 0.012 (0.01-0.034) ng/mL Total Protein 7.3 (6.3-8.2) g/dL Albumin 4.1 (3.5-5.0) g/dL Globulin 3.2 (1.7-4.1) g/dL Albumin/Globulin Ratio 1.3 (1.0-2.8) Discharge Plan Departure Patient Disposition: Home Clinical Impression: Urticaria Chest pain Qualifiers: Chest pain type: unspecified Qualified Code(s): R07.9 - Chest pain, unspecified Instructions: DI for Hives, DI for Chest Pain Activity Restrictions/Additional Instructions: You were evaluated in the ED today for chest pain and chronic hives. Your chest x-ray, EKGs, labs were normal. Your skin rash is persistent chronic urticaria for which you were given a dexamethasone shot, Pepcid AC, Benadryl. Your symptoms improved with these medications. You may continue to take Benadryl, hydroxyzine, montelukast as prescribed. Please follow-up with your PCP as soon as possible for a referral to Dermatology. Return to the ED if you have worsening symptoms, lip or tongue swelling, throat swelling, shortness of breath, trouble swallowing. Please do not hesitate to use the EpiPen That you already have if you have any symptoms of anaphylaxis. Prescriptions: No Action multivitamin Tablet 1 tab PO DAILY fluoxetine 40 mg Capsule 40 mg PO QPM furosemide 40 mg Tablet 40 mg PO DAILY potassium chloride 10 mEq Capsule, Extended Release 10 meq PO DAILY aspirin 81 mg Tablet,Delayed Release (Dr/Ec) 81 mg PO DAILY gabapentin 300 mg Capsule 300 mg PO DAILY PRN (Reason: as directed) albuterol sulfate 90 mcg/actuation Hfa Aerosol Inhaler 1 puff INHALATION PRN PRN (Reason: Shortness Of Breath) metoprolol tartrate 25 mg Tablet 25 mg PO BID pantoprazole [address] For Susp In Packet 40 mg PO DAILY Vitamin D3 1 cap PO DAILY vitamin E 1 cap PO DAILY prednisone 20 mg tablet 20 mg PO DAILY Qty: 35 0RF Rx Instructions: Take 3 tabs PO QD for 5 days then 2 tabs PO QD for 5 days the n1 tab Po QD for 5 days then 1/2 tab PO QD for 5 days methylprednisolone [Medrol (Damián)] 4 mg tablets,dose pack See Rx Instructions .ROUTE .COMPLEX Qty: 21 0RF Rx Instructions: orally per package directions diphenhydramine HCl 25 mg capsule 25 mg PO TID PRN (Reason: allergic reaction) Qty: 20 0RF famotidine [Pepcid] 20 mg tablet 20 mg PO BID Qty: 20 0RF prednisone 20 mg tablet 40 mg PO DAILY Qty: 10 0RF prednisone 10 mg tablet 10 mg PO DAILY Qty: 30 0RF Rx Instructions: day 1-3: 40 mg once a day day 4-6: 30 mg once a day day 7-9: 20 mg once a day day 10-12: 10 mg once a day Referrals: Miscellaneous,Doctor, MD [Primary Care Provider] - Stand Alone Forms: Patient Portal/API ED Sign-out <Marry Grace MD - Last Filed: 04/13/23 15:17> Cosign ED Attending Cosignature Attestation: I did not see this patient. I was available all times for consultation.
[2023-04-13 13:48] LABS: Creatine Kinase < 20 U/L (30-135)
[2023-04-13 14:00] LABS: Troponin I < 0.012 ng/mL (0.01-0.034)
== END 2023-04-13 14:37 | disposition home or self-care (01) ==
PROVIDERS: Emergency Medicine; Emergency Provider Student in an Organized Health Care Education/Training Program
DX: L50.9 Urticaria, unspecified (principal); R07.9 Chest pain, unspecified; F17.290 Nicotine dependence, other tobacco product, uncomplicated
CPT/HCPCS: 36415; 71045; 80053; 82550; 84484; 85025; 93005; 96374; 96375; 99284; J1100; J1200

== ENCOUNTER 2023-08-22 15:22 | Emergency (ER) | payer OTHER, SELFPAY ==
[2023-08-22 15:34] VITALS: BP 108/59; PULSE 74; RESP 17; TEMP 36.3; O2SAT 96; BMI 33.5
--- NOTE | 2023-08-22 16:49 | ED.DENTAL ---
HPI - Dental/Oral <Steven Meier PA-C - Last Filed: 08/22/23 17:14> General Chief complaint: Dental/Oral Stated complaint: Nausea, Facial swelling post-tooth removal Time Seen by Provider: 08/22/23 16:42 Source: patient Mode of arrival: Ambulatory History of Present Illness HPI Narrative: This is a 67-year-old female presents emergency department due to upper jaw pain onset 2 days ago. Two days ago she had a procedure with the dentist where they had 9 of her top teeth removed. She is complaining of an aching pain since then which she was unable to control with p.o. Tylenol. She says she was spoke with a dentist he said they were unable to prescribe narcotics but to follow up in the emergency department for pain control. She denies any fevers, nausea, vomiting, or any other concerning signs or symptoms. Related Data Home Medications Medication Instructions Recorded Confirmed Vitamin D3 1 cap PO DAILY 07/21/18 07/21/18 albuterol sulfate 90 mcg/actuation 1 puff inhalation PRN PRN 07/21/18 07/21/18 aerosol inhaler Shortness Of Breath aspirin 81 mg tablet,delayed 81 mg PO DAILY 07/21/18 07/21/18 release fluoxetine 40 mg capsule 40 mg PO QPM 07/21/18 07/21/18 furosemide 40 mg tablet 40 mg PO DAILY 07/21/18 07/21/18 gabapentin 300 mg capsule 300 mg PO DAILY PRN as directed 07/21/18 07/21/18 metoprolol tartrate 25 mg tablet 25 mg PO BID 07/21/18 07/21/18 multivitamin 1 tab PO DAILY 07/21/18 07/21/18 pantoprazole 40 mg granules 40 mg PO DAILY 07/21/18 07/21/18 delayed-release for susp in packet potassium chloride 10 mEq 10 meq PO DAILY 07/21/18 07/21/18 capsule,extended release vitamin E 1 cap PO DAILY 07/21/18 07/21/18 Previous Rx's Medication Instructions Recorded prednisone 20 mg tablet 20 mg PO DAILY #35 tabs 07/21/18 diphenhydramine HCl 25 mg capsule 25 mg PO TID PRN allergic reaction 12/31/21 #20 caps famotidine 20 mg tablet (Pepcid) 20 mg PO BID #20 tabs 12/31/21 methylprednisolone 4 mg tablets in See Rx Instructions PO .COMPLEX 12/31/21 a dose pack (Medrol (Damián)) #21 ea prednisone 20 mg tablet 40 mg (2 x 20 mg) PO DAILY #10 tabs 03/21/23 prednisone 10 mg tablet 10 mg PO DAILY #30 tabs 03/29/23 ondansetron 4 mg disintegrating 4 mg PO Q8H PRN nausea and 08/22/23 tablet vomiting #20 tabs oxycodone 5 mg capsule 5 mg PO Q6H PRN pain #20 caps 08/22/23 prednisone 20 mg tablet 40 mg (2 x 20 mg) PO DAILY #10 tabs 08/22/23 Allergies Allergy/AdvReac Type Severity Reaction Status Date / Time lisinopril AdvReac Cough Verified 08/22/23 15:34 Review of Systems <Steven Meier PA-C - Last Filed: 08/22/23 17:14> Review of Systems Narrative: GENERAL: Denies chills, fatigue, malaise, fever, sweats. HEENT: Reports upper dental pain RESPIRATORY: Denies dyspnea, cough, wheezing, hemoptysis, sputum. CARDIOVASCULAR: Denies chest pain, palpitations, orthopnea, edema, GASTROINTESTINAL: Denies nausea, vomiting, abdominal pain, diarrhea, constipation, melena. : Denies dysuria, frequency, incontinence, hematuria, urinary retention. MUSCULOSKELETAL: denies weakness, joint pain, or bony pain SKIN: Denies rash, skin lesions, or other NEUROLOGIC: Denies weakness, headache, numbness, change in speech, confusion, seizures, incoordination. PSYCHIATRIC: No concerning psychosocial issues. 12 point review of systems is negative except for those stated above Patient History <Steven Meier PA-C - Last Filed: 08/22/23 17:14> Medical History Hypertension Social History lives independently: Yes Smoking Status: Current every day smoker Smoking Status: Current every day smoker Alcohol type: other Substance Use Type: does not use Exam <Steven Meier PA-C - Last Filed: 08/22/23 17:14> Narrative Exam Narrative: GENERAL: Well-developed patient, in mild distress. HEAD: Atraumatic. Normocephalic. EYES: Pupils equal round and reactive. Extraocular motions intact. No scleral icterus. No injection or drainage. ENT: Nose without bleeding, purulent drainage. Throat without erythema, tonsillar hypertrophy or exudate. Airway patent. Patient was missing all teeth from the upper gumline no significant abscesses noted in the gumline. NECK: Trachea midline. Non tender EXTREMITIES: No edema or joint tenderness. NEURO: AOx3. SKIN: No rash or erythema of visible areas Initial Vital Signs Initial Vital Signs: Vital Signs Temperature 97.3 F L 08/22/23 15:34 Pulse Rate 74 08/22/23 15:34 Respiratory Rate 17 08/22/23 15:34 Blood Pressure 108/59 L 08/22/23 15:34 Pulse Oximetry 96 08/22/23 15:34 Oxygen Delivery Method Room Air 08/22/23 15:34 <Sumi Mcclain DO - Last Filed: 08/28/23 07:19> Initial Vital Signs Initial Vital Signs: Vital Signs Temperature 97.3 F L 08/22/23 15:34 Pulse Rate 74 08/22/23 15:34 Respiratory Rate 17 08/22/23 15:34 Blood Pressure 108/59 L 08/22/23 15:34 Pulse Oximetry 96 08/22/23 15:34 Oxygen Delivery Method Room Air 08/22/23 15:34 Course <YULY Bonner Last Filed: 08/22/23 17:14> Vital Signs Vital signs: Vital Signs - 8 hr 08/22/23 15:34 Temperature 97.3 F L Pulse Rate 74 Respiratory Rate 17 Blood Pressure 108/59 L Pulse Oximetry 96 Oxygen Delivery Method Room Air <DO Madelaine Renea Last Filed: 08/28/23 07:19> Vital Signs Vital signs: Vital Signs - 8 hr 08/22/23 15:34 Temperature 97.3 F L Pulse Rate 74 Respiratory Rate 17 Blood Pressure 108/59 L Pulse Oximetry 96 Oxygen Delivery Method Room Air MDM - Dental/Oral <Steven Meier PA-C - Last Filed: 08/22/23 17:14> MDM Narrative Medical decision making narrative: ED course: This is a 67-year-old female presents emergency department due to upper dental pain after removal of the 90s with a dentist 2 days ago. She was only been prescribed Tylenol for pain control. She denies any fevers. Afebrile no significant edema in lower concern for infection. Suspect pain is due to the recent procedure. We will prescribe a short course of narcotics until they are able to follow up with the dentist on Thursday. We will prescribe a short course of prednisone to help with inflammation and possible decreased pain. CC: Dental pain Complicating co-morbidities: None Data collected from: Previous notes Medical records reviewed: Patient was last seen about 5 months ago due to chest pain. History of chronic idiopathic urticaria, [place]. Seen for ongoing urticaria for the last month. Patient's symptoms improved with dexamethasone, Pepcid, Benadryl. Differential considered, but not limited to: Dental infection, postop pain Exam documented above, pertinent findings include: No evidence of any kind of abscesses, no significant swelling erythema, afebrile Lab Test results independently reviewed as above. Pertinent findings: None obtained Imaging studies independently reviewed: None obtained Scores Used: None MIPS Elements: None Consultations: None Treatments: None Re-evaluations: None Discussion: Discussed plan with the patient was comfortable with the plan Diagnosis: Postprocedural pain Disposition: see below, along with detailed discharge instructions that have been reviewed with patient as well as indications for ED re-evaluation and additional outpatient follow up Discharge Plan Departure Patient Disposition: Home Clinical Impression: Other acute postprocedural pain Activity Restrictions/Additional Instructions: Thank you for coming to the [facility] Emergency Department today. As we discussed I suspect the pain URI experiencing is to be expected post procedure as you had a large procedure done. You do not have any fevers and I have a low concern for any kind of infection. Please continue to use Tylenol but you may use the narcotics for any breakthrough pain. The prednisone should help with the inflammation and pain as well. Please return to the emergency department if you develop any high fevers, nausea, vomiting, or any other concerning signs or symptoms. I hope you feel better soon. Please follow up with your primary care provider within a week if your symptoms continue. If you do not have a primary care provider please contact the [facility] Resource line at [phone]. They will ask some questions about your medical history and help you get set up with a provider in the community. Prescriptions: New oxycodone 5 mg capsule 5 mg PO Q6H PRN (Reason: pain) Qty: 20 0RF ondansetron 4 mg tablet,disintegrating 4 mg PO Q8H PRN (Reason: nausea and vomiting) Qty: 20 0RF prednisone 20 mg tablet 40 mg PO DAILY Qty: 10 0RF No Action multivitamin Tablet 1 tab PO DAILY fluoxetine 40 mg Capsule 40 mg PO QPM furosemide 40 mg Tablet 40 mg PO DAILY potassium chloride 10 mEq Capsule, Extended Release 10 meq PO DAILY aspirin 81 mg Tablet,Delayed Release (Dr/Ec) 81 mg PO DAILY gabapentin 300 mg Capsule 300 mg PO DAILY PRN (Reason: as directed) albuterol sulfate 90 mcg/actuation Hfa Aerosol Inhaler 1 puff INHALATION PRN PRN (Reason: Shortness Of Breath) metoprolol tartrate 25 mg Tablet 25 mg PO BID pantoprazole [address] For Susp In Packet 40 mg PO DAILY Vitamin D3 1 cap PO DAILY vitamin E 1 cap PO DAILY prednisone 20 mg tablet 20 mg PO DAILY Qty: 35 0RF Rx Instructions: Take 3 tabs PO QD for 5 days then 2 tabs PO QD for 5 days the n1 tab Po QD for 5 days then 1/2 tab PO QD for 5 days methylprednisolone [Medrol (Damián)] 4 mg tablets,dose pack See Rx Instructions .ROUTE .COMPLEX Qty: 21 0RF Rx Instructions: orally per package directions diphenhydramine HCl 25 mg capsule 25 mg PO TID PRN (Reason: allergic reaction) Qty: 20 0RF famotidine [Pepcid] 20 mg tablet 20 mg PO BID Qty: 20 0RF prednisone 20 mg tablet 40 mg PO DAILY Qty: 10 0RF prednisone 10 mg tablet 10 mg PO DAILY Qty: 30 0RF Rx Instructions: day 1-3: 40 mg once a day day 4-6: 30 mg once a day day 7-9: 20 mg once a day day 10-12: 10 mg once a day Referrals: Miscellaneous,Doctor, MD [Primary Care Provider] - Stand Alone Forms: Patient Portal/API ED Sign-out <Sumi Mcclain DO - Last Filed: 08/28/23 07:19> Cosign ED Attending Kevinature Attestation: I was available for consultation.
[2023-08-22 17:23] VITALS: BP 120/78; PULSE 70; RESP 14; O2SAT 99
== END 2023-08-22 17:25 | disposition home or self-care (01) ==
PROVIDERS: Emergency Provider Physician Assistant Medical
DX: G89.18 Other acute postprocedural pain (principal)
CPT/HCPCS: 99281; 99282

== ENCOUNTER → 2023-11-24 13:27 | Outpatient (CLI) | payer OTHER, SELFPAY ==
[2023-11-24 14:44] LABS: Add Manual Diff / Slide Review NO; Basophils Absolute Auto 100 /uL (0-100); Basophils Percent Auto 0.7 % (0-2); Eosinophils Absolute Auto 100 /uL (0-450); Eosinophils Percent Auto 1.6 % (2-4); Hematocrit 44.1 % (36-46); Lymphocytes Absolute Auto 2100 /uL (1100-4500); Lymphocytes Percent Auto 26.1 % (25-40); Mean Corpuscular HGB Conc 34.1 % (30-36); Mean Corpuscular Hemoglobin 31.6 PG (26-34); Mean Corpuscular Volume 92.5 fL (80-100); Monocytes Absolute Auto 500 /uL (0-900); Monocytes Percent Auto 6.1 % (3-14); Neutrophils Absolute Auto 5300 /uL (1500-7000); Neutrophils Percent Auto 65.5 % (50-75); Platelet Count 264 X10^3/uL (150-400); Red Blood Cell Count 4.77 X10^6/uL (4.0-5.2); Red Cell Distribution Width 13.3 % (11.6-14.8); White Blood Cell Count 8.2 X10^3/uL (4.5-11.0)
[2023-11-24 14:59] LABS: Hemoglobin A1C% w Est Avg Glu 5.5 % (4.0-6.0)
[2023-11-24 15:10] LABS: Blood Urea Nitrogen 20 mg/dL (7-17); Calcium 9.1 mg/dL (8.4-10.2); Carbon Dioxide 27 mmol/L (22-32); Chloride 103 mmol/L (98-107); Estimated Glomerular Filt Rate > 60 mL/min (>60); Glucose 99 mg/dL (80-110); HEMOLYSIS < 15 (0-50); Potassium 4.1 mmol/L (3.4-5.1); Sodium 138 mmol/L (137-145)
== END ==
PROVIDERS: Referring Provider Orthopaedic Surgery; Visit Provider Orthopaedic Surgery
DX: M25.561 Pain in right knee (principal); R73.9 Hyperglycemia, unspecified; Z01.812 Encounter for preprocedural laboratory examination
CPT/HCPCS: 36415; 80048; 83036; 85025

== ENCOUNTER 2023-12-17 09:59 | Day surgery (SDC) | payer OTHER, SELFPAY ==
[2023-12-03 12:38] VITALS: BMI 34.9
[2023-12-17] VITALS (9 sets, daily range): BP systolic 119–134; BP diastolic 53–73; PULSE 74–98; RESP 12–18; TEMP 35.5–36.7; O2SAT 94–99; BMI 33.3; BMI 34.7
--- NOTE | 2023-12-17 06:00 | DI.RAD.S_ITS ---
PROCEDURE: XR KNEE LT 1TO2V INDICATIONS: tka TECHNIQUE: 2 view(s) of the knee acquired. COMPARISON: [facility] [place], CR, XR KNEE 4+ VIEWS LEFT, 09/02/2023, 9:12. [facility], CR, XR KNEE 3 VIEWS RIGHT, 10/17/2023, 14:52. FINDINGS: Bones: Patient is status post knee joint arthroplasty. Hardware components are in expected positions. Visualized bony structures are intact. Soft tissues: Overlying postoperative changes are noted. IMPRESSION: Expected post-operative appearance of a knee arthroplasty. Dictated by: Andre Albert M.D. on 12/17/2023 at 21:44 Approved by: Andre Albert M.D. on 12/17/2023 at 21:46
[2023-12-17] MEDS: ACETAMINOPHEN 325 MG TABLET 975 MG PO (10:56)
[2023-12-17] MEDS: LACTATED RINGERS 1,000 ML 42 ML IV ×2 (11:07→14:19)
[2023-12-17] MEDS: VANCOMYCIN 1,000 MG/200 ML PIGGYBACK 200 MG IV (12:30)
--- NOTE | 2023-12-17 12:40 | SUR.PREOP ---
Block start time [1230] . Monitoring initiated and maintained throughout procedure. Oxygen and medications given per anesthesiologist instructions. Patient remained stable throughout procedure, no adverse reactions noted. Block end time [1235].
[2023-12-17] MEDS: TRANEXAMIC ACID 1,000 MG VIAL 2000 MG INJ ×2 (13:00→14:45)
[2023-12-17] MEDS: CEFAZOLIN 2 GM/100 ML PREMIX 100 ML IV (13:10)
--- NOTE | 2023-12-17 13:27 | SUR.OPER ---
Supine on padded OR bed. Pillow under head, arms secured on padded armboards <90 degree abduction. Safety belt across torso. Non-operative leg secured with tape over blanket over lower leg. Operative leg secured in DeMayo/Niall/Nathe positioner. Foam padded brace at thigh of operative leg.
[2023-12-17] MEDS: BUPIVACAINE LIPOSOME 266 MG/20 ML VIAL INJ (13:37)
[2023-12-17] MEDS: BUPIVACAINE 0.25% (PF) 60 ML, EPINEPHrine 0.3 MG INJ (13:38)
[2023-12-17] MEDS: LACTATED RINGERS 1,000 ML 100 ML IV (15:00)
[2023-12-17] MEDS: OXYCODONE IR 5 MG TABLET PO ×3 (15:23→20:15)
[2023-12-17] MEDS: MONTELUKAST 10 MG TABLET PO (16:48)
--- NOTE | 2023-12-17 18:40 | PM.OP.1 ---
Operative Date/Time/Diagnoses Date of procedure: 12/17/23 Time of procedure: 13:00 Pre-op diagnosis: Left knee OA Post-op diagnosis: same Procedure & Clinicians Procedure: Left total knee arthroplasty Same procedure as scheduled: Yes Indications: The patient has had progressively worsening left knee pain with radiographic changes consistent with arthritis. Non-operative management has failed and the patient has requested total knee replacement. The risks, benefits and alternatives to surgery were discussed with the patient prior to proceeding. Risks discussed included, but were not limited to, failure to relieve pain, stiffness, infection, nerve damage, deep venous thrombosis, pulmonary embolism, stroke, coma, heart attack, permanent paralysis and , as well as the potential need for eventual revision of the prosthetic. Surgeon: Courtney Garvey [place]ill Operator: Wesley Little Anesthesia Type: General and Spinal Operative Notes Findings: Severe left knee OA Closure Type: primary Specimen(s): none sent Prosthetic devices, grafts, tissues, transplants, or devices: Left knee journey BCS 2 size 6 femur, size 4 tibia, +9 poly, 35 x 7-1/2 mm patella Estimated Blood Loss (mL): 250 Blood products transfused: none Tourniquet time (min): 74 Procedure in detail: The patient was seen in the pre-operative area, where the patient identified the left knee as the operative site and this was marked with my initials. The patient received pre-operative antibiotics, and was taken to the operating room and placed on the operative table in the supine position. After satisfactory anesthesia, a full time staff interpreter out was performed. The left leg was encircled with a tourniquet about the proximal thigh, and the leg was prepared from the toes to the tourniquet with ChloroPrep in the usual fashion and draped through sterile drapes. The leg was elevated and exsanguinated with Eschmark bandage and the tourniquet inflated to [250] mmHg pressure. A PA was used during the procedure and was essential for intraoperative retraction and safe implantation of the components. The knee was approached through an approximately 18 cm incision centered over the patella and carried into the knee through a medial parapatellar arthrotomy. Portion of the medial and lateral meniscus was resected. Soft tissue was carefully mobilized around the patella the patella was measured with a caliper. Bone was resected from the patella and the patellar height was reconstituted with up an appropriate sized patellar component. A cover was then placed on the patella. A small amount of additional medial and lateral meniscus was resected. Cori pins were placed in the femur and the tibial guide was pinned to the proximal tibia. The knee was meticulously navigated and mapped. A plan was taken and developed for optimizing range of motion and stability. Robotic assistance was used for the distal femoral cut. It looked like an appropriate distal femoral cut and the cut was made without difficulty. The rotation was assessed and the appropriate size femoral guide was placed on the distal femur and finishing cuts were made. There was no evidence of notching. The anterior, posterior and chamfer cuts were then made. The posterior osteophytes and soft tissues were then removed. The posterior capsule was injected with part of a mixture of 60 ml 0.25% Marcaine mixed with 20 ml Exparel for post operative pain control. The remainder of this mixture was injected into the capsule and subcutaneous tissues during cement curing. The tibia was prepared by carefully navigated the tibial guide pinning it to the guide and resecting the tibia without difficulty.. The patient was placed in extension residual medial and lateral meniscus as well as any residual bone was carefully resected. [No] additional tibia was resected. Hemostasis was achieved especially posteriorly. Additional local was injected into the posterior capsule. The extension gap was assessed. The femoral component was trial was placed and the notch was finished. Trial tibial and femoral components were then placed and the knee placed through a range of motion. Range of motion was [0-130], with good stability throughout the range. The trials were then removed, and the tibia was finished. The bone was prepared with pulsatile lavage, and dried with a sponge. Cement was applied and the final prosthetics placed. Excess cement was removed during and after cement curing. A brief Betadine soak was performed. After confirming there was no extruded cement posteriorly, the final tibial insert was placed. The knee was copiously irrigated and the tourniquet deflated. Hemostasis was obtained with the Bovie cautery. The capsule was closed with interrupted # 1 Vicryl suture. The subcutaneous layer was closed with barbed sutures, and the skin with a running 3-0 V-Lock suture and Surgical glue. An Aquacel Ag dressing was applied and the patient was taken to recovery having tolerated the procedure well. Complications: none Post-operative Condition: stable Disposition: Acute Care Plan for aftercare: The patient will be maintained on a standard total knee replacement protocol with weight bearing as tolerated. The patient will receive aspirin and sequential compression devices for DVT prophylaxis. The patient will be discharged home when safe for the home environment.
--- NOTE | 2023-12-17 20:41 | PC.NURSE ---
Addendum entered by Tico Chin R.N. 12/17/23 20:42: GIVEN PRIOR TO EXIT Original Note: PAPERWORK SIGNED AND GONE OVER WITH PATIENT,IV REMOVED,WHEELED TO EXIT WITH REAL ESTATE OFFICE MANAGER AND PATIENTS FRIEND, 5MG OXYCODONE GIVE N
== END 2023-12-17 20:35 | disposition home or self-care (01) ==
LOC: OR 15:15 → AC 15:28
PROVIDERS: Referring Provider Orthopaedic Surgery; Visit Provider Orthopaedic Surgery
PROC: 0SRD0JZ Replacement of Left Knee Joint with Synthetic Substitute, Open Approach (ICD-10-PCS; CPT 27447; principal; 2023-12-17 11:45)
DX: M17.12 Unilateral primary osteoarthritis, left knee (principal); G89.18 Other acute postprocedural pain; M25.762 Osteophyte, left knee
CPT/HCPCS: 27447; 64450; 73560; C1776; C9290; J0171; J0690; J1100; J1170; J1885; J2405; J2704

== ENCOUNTER 2024-04-28 12:58 | Emergency (ER) | payer OTHER, SELFPAY ==
[2023-12-17 15:49] VITALS: BMI 34.7
[2024-04-28 13:12] VITALS: BP 119/59; PULSE 65; RESP 18; TEMP 36.9; O2SAT 96; BMI 32.0
--- NOTE | 2024-04-28 14:23 | ED.BACK ---
HPI - Back Pain/Injury <Marylin Salcido PA-C - Last Filed: 04/28/24 16:38> General Chief Complaint: Back Pain/Injury Stated Complaint: back pain t-4 Time Seen by Provider: 04/28/24 13:34 Source: patient History of Present Illness HPI Narrative: Ms. Soares is a pleasant 68-year-old female with a past medical history of CAD/mi, OA, CHF, HTN, HLD, ABI, asthma, left knee surgery in December who presents to the emergency department for left-sided low back pain x4 days. Patient denies any trauma or precipitating symptoms however about 4 days ago she had pain across her low back. States that she does not suffer with chronic back pain however this pain is much worse in any back pain she is ever experienced before. Pain occasionally radiates across the left side of the back and down the left leg. She denies numbness or tingling in the legs. States that she suffers with chronic urinary incontinence however it has been worse over the last 4 days. No bowel incontinence. Denies saddle anesthesia. Denies fevers, chills, abdominal pain, nausea, vomiting, diarrhea. She also reports a cough over the last 1-2 months that is worsening her asthma. She took ibuprofen and Tylenol prior to arrival which did not improve her pain at all. She ambulates with a cane. Related Data Home Medications Medication Instructions Recorded Confirmed Vitamin D3 1 cap PO DAILY 07/21/18 12/17/23 albuterol sulfate 90 mcg/actuation 1 puff inhalation PRN PRN 07/21/18 12/17/23 aerosol inhaler Shortness Of Breath aspirin 81 mg tablet,delayed 81 mg PO DAILY 07/21/18 12/17/23 release furosemide 40 mg tablet 40 mg PO BID 07/21/18 12/17/23 metoprolol tartrate 25 mg tablet 25 mg PO BID 07/21/18 12/17/23 vitamin E 1 cap PO DAILY 07/21/18 12/17/23 atorvastatin 40 mg tablet 40 mg PO DAILY 12/03/23 12/17/23 duloxetine 60 mg capsule,delayed 60 mg PO BEDTIME 12/03/23 12/17/23 release famotidine 20 mg tablet (Pepcid) 40 mg PO BID 12/03/23 12/17/23 hydroxyzine HCl 25 mg tablet 50 mg PO BEDTIME Idiopathic 12/03/23 12/17/23 Urticaria isosorbide mononitrate 60 mg 60 mg PO QPM 12/03/23 12/17/23 tablet,extended release 24 hr montelukast 10 mg tablet 10 mg PO QPM 12/03/23 12/17/23 potassium chloride 20 mEq 20 meq PO DAILY 12/03/23 12/17/23 tablet,extended release acetaminophen 500 mg tablet 1,000 mg PO Q6H PRN Pain, Moderate 12/17/23 12/17/23 Previous Rx's Medication Instructions Recorded diphenhydramine HCl 25 mg capsule 25 mg PO TID PRN allergic reaction 12/31/21 #20 caps oxycodone 5 mg tablet 5 mg PO Q4H PRN pain #30 tabs 12/17/23 cyclobenzaprine 5 mg tablet 5 mg PO BEDTIME PRN muscle spasm 04/28/24 #14 tabs Allergies Allergy/AdvReac Type Severity Reaction Status Date / Time amoxicillin Allergy Severe Hives Verified 12/17/23 10:29 bee venom protein (honey bee) Allergy Severe Anaphylaxis Verified 12/17/23 10:29 clindamycin Allergy Severe Hives Verified 12/17/23 10:29 meloxicam Allergy Severe Hives Verified 12/17/23 10:29 simvastatin Allergy Verified 12/17/23 10:29 venlafaxine Allergy Pt does Verified 12/17/23 10:29 not remember reaction gabapentin AdvReac Severe Hallucinati Verified 12/17/23 10:29 ng lisinopril AdvReac Severe Cough Verified 12/17/23 10:29 ramipril AdvReac Severe Cough Verified 12/17/23 10:29 benzocaine AdvReac Blisters Verified 12/17/23 10:29 in mouth Review of Systems <Marylin Salcido PA-C - Last Filed: 04/28/24 16:38> Review of Systems ROS Unobtainable: All systems reviewed & are unremarkable except as noted in HPI and below Patient History <Marylin Salcido PA-C - Last Filed: 04/28/24 16:38> Medical History History of COVID-19 (11/2022) Anxiety Panic attacks Osteoarthritis Myocardial infarction (11/2008) Pre-diabetes PTSD (post-traumatic stress disorder) Cervicalgia Allergic rhinitis History of fall History of left heart catheterization (2011) ABI on CPAP HLD (hyperlipidemia) CHF (congestive heart failure) CAD (coronary artery disease) Hypertension Surgical History S/P cervical spinal fusion (~1996) Hx of elbow surgery Hx of tonsillectomy History of hysterectomy Hx of appendectomy S/p bilateral blepharoplasty Hx of heart artery stent (11/2008) Social History household members: friend(s) lives independently: Yes Smoking Status: Current every day smoker alcohol intake: never Smoking Status: Current every day smoker tobacco type: cigarettes Alcohol type: other Exam <Marylin Salcido PA-C - Last Filed: 04/28/24 16:38> Narrative Exam Narrative: GENERAL: 68 year old patient appears stated age. Well-developed patient, in no acute distress. HEAD: Atraumatic. Normocephalic. EYES: Extraocular motions intact. No scleral icterus. No injection or drainage. ENT: Nose without bleeding, purulent drainage. NECK: Trachea midline. Cervical ROM intact. CARDIOVASCULAR: Regular rate and rhythm. RESPIRATORY: ?Nonlabored respirations. ?Speaking in clear, full sentences. ?Very faint wheezes BL lower lobes. GASTROINTESTINAL: Abdomen soft, non-tender, nondistended. EXTREMITIES: No edema or joint tenderness. BACK: No CVa tenderness. Mild left lumbar paraspinal pain. No midline pain. Positive left leg SLR. NEURO: AOx3. ?Clear speech. ?Moves all 4 extremities appropriately. SKIN: No rash or erythema of visible areas Initial Vital Signs Initial Vital Signs: Vital Signs Temperature 98.4 F 04/28/24 13:12 Pulse Rate 65 04/28/24 13:12 Respiratory Rate 18 04/28/24 13:12 Blood Pressure 119/59 L 04/28/24 13:12 Pulse Oximetry 96 04/28/24 13:12 Oxygen Delivery Method Room Air 04/28/24 13:12 <Rom Mireles DO - Last Filed: 04/28/24 17:10> Initial Vital Signs Initial Vital Signs: Vital Signs Temperature 98.4 F 04/28/24 13:12 Pulse Rate 65 04/28/24 13:12 Respiratory Rate 18 04/28/24 13:12 Blood Pressure 119/59 L 04/28/24 13:12 Pulse Oximetry 96 04/28/24 13:12 Oxygen Delivery Method Room Air 04/28/24 13:12 Course <YULY Berry Last Filed: 04/28/24 16:38> Orders Ordered: ED Orders 04/28/24 14:37 CT lumbar spine wo con Stat XR chest 2V Stat Discontinued Medications Dexamethasone (Dexamethasone 4 Mg Tablet) 8 mg PO NOW ONE Stop: 04/28/24 14:38 Last Admin: 04/28/24 14:59 Dose: 8 mg Documented By: RB Oxycodone HCl (Oxycodone Ir 5 Mg Tablet) 5 mg PO NOW ONE Stop: 04/28/24 14:38 Last Admin: 04/28/24 14:59 Dose: 5 mg Documented By: RB Vital Signs Vital signs: Vital Signs - 8 hr 04/28/24 13:12 04/28/24 16:46 Temperature 98.4 F 97.9 F Pulse Rate 65 63 Respiratory Rate 18 16 Blood Pressure 119/59 L 121/67 Pulse Oximetry 96 97 Oxygen Delivery Method Room Air Room Air <Rom Mireles DO - Last Filed: 04/28/24 17:10> Orders Ordered: ED Orders 04/28/24 14:37 CT lumbar spine wo con Stat XR chest 2V Stat Discontinued Medications Dexamethasone (Dexamethasone 4 Mg Tablet) 8 mg PO NOW ONE Stop: 04/28/24 14:38 Last Admin: 04/28/24 14:59 Dose: 8 mg Documented By: RB Oxycodone HCl (Oxycodone Ir 5 Mg Tablet) 5 mg PO NOW ONE Stop: 04/28/24 14:38 Last Admin: 04/28/24 14:59 Dose: 5 mg Documented By: RB Vital Signs Vital signs: Vital Signs - 8 hr 04/28/24 13:12 04/28/24 16:46 Temperature 98.4 F 97.9 F Pulse Rate 65 63 Respiratory Rate 18 16 Blood Pressure 119/59 L 121/67 Pulse Oximetry 96 97 Oxygen Delivery Method Room Air Room Air MDM - Back Pain/Injury <YULY Berry Last Filed: 04/28/24 16:38> Lab Data Labs: Urine Dip Bedside Urine Glucose Negative Bedside Urine Bilirubin - Negative Bedside Urine Ketone - Negative Urine Specific [place] 1.005 Bedside Urine Occult Blood - Negative Bedside Urine pH 6.0 Bedside Urine Protein - Negative Bedside Urine Urobilinogen - Negative Bedside Urine Nitrite - Negative Bedside Urine Leukocytes - Negative Esterase Imaging Data CT Lumbar Spine: Radiologist's Impression: PROCEDURE: CT LUMBAR SPINE WO CON INDICATIONS: low back pain radiating left side TECHNIQUE: Noncontrast 3 mm thick sections acquired from the T12 level to the sacrum. Sagittal and coronal reformats were constructed. For radiation dose reduction, the following was used: automated exposure control. COMPARISON: None. FINDINGS: Image quality: Excellent. Bones: Mild straightening of the normal lumbar lordosis. Minimal levocurvature. Decreased osseous mineralization. Degenerative changes are most pronounced at L4-5 with severe disc height loss, vacuum disc phenomenon, osteophytosis. Mild facet arthropathy throughout. There is no significant central canal or neural foraminal stenosis throughout. No acute vertebral body compression fractures. No suspicious lytic or blastic bony lesions. No pars defects. Soft tissues: No retroperitoneal masses or hematomas. Visualized aorta is normal in caliber. Atherosclerotic vascular calcifications. IMPRESSION: Focal degenerative changes at L4-5. No significant central canal or neural foraminal stenosis throughout. [facility] Narrative Medical decision making narrative: 68-year-old female with a past medical history of CAD/mi, OA, CHF, HTN, HLD, ABI, asthma, left knee surgery in December who presents to the emergency department for left-sided low back pain x4 days. Differential diagnosis includes but is not limited to lumbar stenosis, lumbar radiculopathy, lumbar degenerative disc disease, nerve compression, asthma exacerbation, pneumonia, UTI, cystitis, etc. On exam patient is in no acute distress, nontoxic appearing, vital signs appropriate. On physical exam she has a positive left straight leg raise and subjective tenderness in left lumbar paraspinal region. She does have faint wheezes on lung auscultation. Lower extremities are neurovascularly intact and she denies saddle anesthesia however she does have increase in urinary incontinence. We will proceed with CT lumbar without contrast for further evaluation of pain in addition to chest x-ray for wheezes. We will treat with decadron and oxycodone in the ER. Urinalysis negative. Chest x-ray negative for acute cardiopulmonary abnormality. No pneumonia. Patient has no shortness of breath, I no longer auscultate any wheezes. Advised she use her at-home albuterol if needed for asthma. As for her low back pain, lumbar CT reveals focal degenerative changes at L4-L5. No significant central canal or neural foraminal stenosis throughout. Patient had improvement in her pain in the ED after oxycodone and Decadron. Recommended Tylenol, lidocaine patches, gentle stretching, warm compresses at home. I prescribed her a short course of Flexeril to be used at night only and discussed risks muscle relaxers. Advised patient to follow up with her primary care doctor for further evaluation, referral to physical therapy. Also advised patient follow up with orthopedic or spine surgeon for further evaluation. We discussed ER return precautions. Patient verbalized understanding of all information, is ambulatory, is stable for discharge home with a friend to drive her home. <Rom Mireles, DO - Last Filed: 04/28/24 17:10> Lab Data Labs: Urine Dip Bedside Urine Glucose Negative Bedside Urine Bilirubin - Negative Bedside Urine Ketone - Negative Urine Specific [place] 1.005 Bedside Urine Occult Blood - Negative Bedside Urine pH 6.0 Bedside Urine Protein - Negative Bedside Urine Urobilinogen - Negative Bedside Urine Nitrite - Negative Bedside Urine Leukocytes - Negative Esterase Discharge Plan Departure Patient Disposition: Home Clinical Impression: Back pain at L4-L5 level Instructions: DI for Low Back Pain Activity Restrictions/Additional Instructions: Dear Ms. Timaddis, Your diagnosis today is L4-L5 degerative changes. This can cause back pain and also nerve pain radiating into the left side. Please rest, avoid heavy lifting or bending over, use Tylenol and lidocaine patches for pain, you may also use the prescribed muscle relaxer at night. Muscle relaxers may make you drowsy so be very careful to avoid driving or falling while taking these medications. Please follow up with the primary care doctor as soon as possible for further evaluation and for referral to physical therapy. I also advise that you follow up with an orthopedic spine doctor for further management. Please follow up with your primary care doctor within the next 2-3 days for ER follow-up. (If you do not have a PCP you can call [phone]. ?to schedule an appointment with an [facility] Primary Care Provider) IF YOU DEVELOP ANY NEW OR WORSENING SYMPTOMS, RETURN TO THE ER! Please read the attached instructions, they highlight more specific treatments and interventions for you at home. Thank you for letting me participate in your care, Marylin Salcido PA-C Prescriptions: New cyclobenzaprine 5 mg tablet 5 mg PO BEDTIME PRN (Reason: muscle spasm) Qty: 14 0RF No Action furosemide 40 mg Tablet 40 mg PO BID aspirin 81 mg Tablet,Delayed Release (Dr/Ec) 81 mg PO DAILY albuterol sulfate 90 mcg/actuation Hfa Aerosol Inhaler 1 puff INHALATION PRN PRN (Reason: Shortness Of Breath) metoprolol tartrate 25 mg Tablet 25 mg PO BID Vitamin D3 1 cap PO DAILY vitamin E 1 cap PO DAILY diphenhydramine HCl 25 mg capsule 25 mg PO TID PRN (Reason: allergic reaction) Qty: 20 0RF isosorbide mononitrate 60 mg Tablet Extended Release 24 Hr 60 mg PO QPM montelukast 10 mg Tablet 10 mg PO QPM hydroxyzine HCl 25 mg Tablet 50 mg PO BEDTIME duloxetine 60 mg Capsule,Delayed Release(Dr/Ec) 60 mg PO BEDTIME potassium chloride 20 mEq Tablet Extended Release 20 meq PO DAILY famotidine [Pepcid] 20 mg tablet 40 mg PO BID atorvastatin 40 mg Tablet 40 mg PO DAILY acetaminophen 500 mg Tablet 1,000 mg PO Q6H PRN (Reason: Pain, Moderate) oxycodone 5 mg tablet 5 mg PO Q4H PRN (Reason: pain) Qty: 30 0RF Stand Alone Forms: Patient Portal/API/Survey ED Sign-out <Rom Mireles, DO - Last Filed: 04/28/24 17:10> [facility] Dr Mireles Co-Sign Statement: I was available for consultation during this patient's emergency department visit. This chart is signed by myself for administrative purposes only. I did not have direct contact with this patient during this visit. They were seen independently by the APC.
--- NOTE | 2024-04-28 14:37 | DI.RAD.S_ITS ---
PROCEDURE: XR CHEST 2V INDICATIONS: cough x 2 months TECHNIQUE: 2 views of the chest were acquired. COMPARISON: [facility], CR, XR CHEST 1V, 04/13/2023, 11:41. FINDINGS: Surgical changes and devices: None. Lungs and pleura: Lungs are clear. No pleural effusions or pneumothorax. Mediastinum: Mediastinal contours are normal. Heart size is normal. Bones and chest wall: No suspicious bony abnormalities. Soft tissues appear unremarkable. IMPRESSION: No acute cardiopulmonary abnormality is seen. Dictated by: Daniel Yen M.D. on 04/28/2024 at 15:19 Approved by: Daniel eYn M.D. on 04/28/2024 at 15:19
--- NOTE | 2024-04-28 14:37 | DI.CT.S_ITS ---
PROCEDURE: CT LUMBAR SPINE WO CON INDICATIONS: low back pain radiating left side TECHNIQUE: Noncontrast 3 mm thick sections acquired from the T12 level to the sacrum. Sagittal and coronal reformats were constructed. For radiation dose reduction, the following was used: automated exposure control. COMPARISON: None. FINDINGS: Image quality: Excellent. Bones: Mild straightening of the normal lumbar lordosis. Minimal levocurvature. Decreased osseous mineralization. Degenerative changes are most pronounced at L4-5 with severe disc height loss, vacuum disc phenomenon, osteophytosis. Mild facet arthropathy throughout. There is no significant central canal or neural foraminal stenosis throughout. No acute vertebral body compression fractures. No suspicious lytic or blastic bony lesions. No pars defects. Soft tissues: No retroperitoneal masses or hematomas. Visualized aorta is normal in caliber. Atherosclerotic vascular calcifications. IMPRESSION: Focal degenerative changes at L4-5. No significant central canal or neural foraminal stenosis throughout. Dictated by: Daniel Yen M.D. on 04/28/2024 at 15:19 Approved by: Daniel Yen M.D. on 04/28/2024 at 15:21
[2024-04-28] MEDS: OXYCODONE IR 5 MG TABLET PO (14:59)
[2024-04-28] MEDS: dexAMETHasone 4 MG TABLET 8 MG PO (14:59)
[2024-04-28 16:46] VITALS: BP 121/67; PULSE 63; RESP 16; TEMP 36.6; O2SAT 97
== END 2024-04-28 16:47 | disposition home or self-care (01) ==
PROVIDERS: Emergency Provider Physician Assistant
DX: M47.816 Spondylosis without myelopathy or radiculopathy, lumbar region (principal); R32 Unspecified urinary incontinence
CPT/HCPCS: 71046; 72131; 81003; 99284

== ENCOUNTER 2025-04-15 09:45 | Inpatient (IN) | payer OTHER, SELFPAY ==
[2023-12-17 15:49] VITALS: BMI 34.7
[2025-04-15] VITALS (14 sets, daily range): BP systolic 110–175; BP diastolic 50–67; PULSE 70–99; RESP 12–24; TEMP 35.7–36.8; O2SAT 91–98; BMI 30.9; BMI 29.6
--- NOTE | 2025-04-15 09:54 | EKG_ITS ---
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
--- NOTE | 2025-04-15 09:55 | DI.RAD.S_ITS ---
PROCEDURE: XR CHEST 1V INDICATIONS: Chest Pain TECHNIQUE: One view of the chest was acquired. COMPARISON: [facility], CR, XR CHEST 2V, 04/28/2024, 14:47. [facility], CR, XR CHEST 1V, 04/13/2023, 11:41. FINDINGS: Surgical changes and devices: None. Lungs and pleura: Lungs are clear. No pleural effusions or pneumothorax. Mediastinum: Mediastinal contours appear normal. Heart size is normal. Bones and chest wall: No suspicious bony lesions. Overlying soft tissues appear unremarkable. IMPRESSION: No acute cardiopulmonary abnormality is seen. Dictated by: Sander Chin M.D. on 04/15/2025 at 10:38 Approved by: Sander Chin M.D. on 04/15/2025 at 10:38
--- NOTE | 2025-04-15 09:59 | ED_ITS ---
HPI - Chest Pain General Chief Complaint: Chest Pain Stated Complaint: Heart attack symptoms Time Seen by Provider: 04/15/25 09:50 History of Present Illness HPI narrative: 69-year-old female past medical history of CAD mi away CHF hypertension dyslipidemia obstructive sleep apnea asthma left knee surgery in December presents with intermittent chest pain on and off for the past few weeks presents this morning with chest pain for which she took 3 nitroglycerin but still unrelieved radiating to left arm. Patient did not take any aspirin prior to arrival. Other than what is stated 14 point review of systems. Related Data Home Medications ?Medication ?Instructions ?Recorded ?Confirmed Vitamin D3 1 cap PO DAILY 07/21/1806/10 albuterol sulfate 90 mcg/actuation 1 puff inhalation P RN PRN 07/21/18 12/17/23 aerosol inhaler Shortness Of Breath aspirin 81 mg tablet,delayed 81 mg PO DAILY 07/21/18 0 12/17/23 release furosemide 40 mg tablet 40 mg PO BID 07/21/18 metoprolol tartrate 25 mg tablet 25 mg PO BID 07/21/18 12/17/23 vitamin E 1 cap PO DAILY 07/21/1806/10 atorvastatin 40 mg tablet 40 mg PO DAILY 12/03/2306/10 duloxetine 60 mg capsule,delayed 60 mg PO BEDTIME 11/1512/17/23 release famotidine 20 mg tablet (Pepcid) 40 mg PO BID 12/03/23 12/17/23 hydroxyzine HCl 25 mg tablet 50 mg PO BEDTIME Idiopath ic 12/03/23 12/17/23 Urticaria isosorbide mononitrate 60 mg 60 mg PO QPM 12/03/2306/10 tablet,extended release 24 hr montelukast 10 mg tablet 10 mg PO QPM 12/03/23 potassium chloride 20 mEq 20 meq PO DAILY 12/03/2306/10 tablet,extended release acetaminophen 500 mg tablet 1,000 mg PO Q6H PRN Pain, Moderate 12/17/23 12/17/23 Previous Rx's ?Medication ?Instructions ?Recorded diphenhydramine HCl 25 mg capsule 25 mg PO TID PRN all ergic reaction 12/31/21 #20 caps oxycodone 5 mg tablet 5 mg PO Q4H PRN pain #30 tab s 12/17/23 cyclobenzaprine 5 mg tablet 5 mg PO BEDTIME PRN muscle spasm 04/28/24 #14 tabs Allergies Allergy/AdvReac Type Severity Reaction Status Date / Time amoxicillin Allergy Severe Hives Verified 04/15/25 09:57 bee venom protein (honey bee) Allergy Severe Anaphylaxis Verified 04/15/25 09:57 clindamycin Allergy Severe Hives Verified 04/15/25 09:57 meloxicam Allergy Severe Hives Verified 04/15/25 09:57 simvastatin Allergy Verified 04/15/25 09:57 venlafaxine Allergy Pt does Verified 04/15/25 09:57 not remember reaction gabapentin AdvReac Severe Hallucinati Verified 04/15/25 09:57 ng lisinopril AdvReac Severe Cough Verified 04/15/25 09:57 ramipril AdvReac Severe Cough Verified 04/15/25 09:57 benzocaine AdvReac Blisters Verified 04/15/25 09:57 in mouth Review of Systems Review of Systems ROS Unobtainable: All systems reviewed & are unremarkable except as noted in HPI and below Patient History Medical History History of COVID-19 (11/2022) Anxiety Panic attacks Osteoarthritis Myocardial infarction (11/2008) Pre-diabetes PTSD (post-traumatic stress disorder) Cervicalgia Allergic rhinitis History of fall History of left heart catheterization (2011) ABI on CPAP HLD (hyperlipidemia) CHF (congestive heart failure) CAD (coronary artery disease) Hypertension Surgical History S/P cervical spinal fusion (~1996) Hx of elbow surgery Hx of tonsillectomy History of hysterectomy Hx of appendectomy S/p bilateral blepharoplasty Hx of heart artery stent (11/2008) Social History household members: friend(s) lives independently: Yes alcohol intake: never tobacco type: cigarettes Alcohol type: other Exam Narrative Exam Narrative: GENERAL: [69] year old patient appears stated age. Well-developed patient, in mild distress. HEAD: Atraumatic. Normocephalic. EYES: Pupils equal round and reactive. Extraocular motions intact. No scleral icterus. No injection or drainage. ENT: Nose without bleeding, purulent drainage. Throat without erythema, tonsillar hypertrophy or exudate. Airway patent. NECK: Trachea midline. Non tender CARDIOVASCULAR: Regular rate and rhythm without murmurs, gallops, or rubs. RESPIRATORY: Clear to auscultation. Breath sounds equal bilaterally. No wheezes, rales, or rhonchi. GASTROINTESTINAL: Abdomen soft, non-tender, nondistended. EXTREMITIES: No edema or joint tenderness. BACK: Nontender without deformity or crepitance. No flank tenderness. NEURO: AOx3. SKIN: No rash or erythema of visible areas Initial Vital Signs Initial Vital Signs: Vital Signs Temperature 98.3 F 04/15/25 09:58 Pulse Rate 77 04/15/25 09:58 Respiratory Rate 17 04/15/25 09:58 Blood Pressure 148/67 H 04/15/25 09:58 Pulse Oximetry 98 04/15/25 09:58 Oxygen Delivery Method Room Air 04/15/25 09:58 Course Orders Ordered: ED Orders 04/15/25 09:55 XR chest 1V Stat EKG-12 Lead Stat 04/15/25 09:59 Complete Blood Count AUTO DIFF Stat Comprehensive Metabolic Panel Stat Lipase Stat Magnesium Stat NT-proBNP (BNP-Adult 18+) Stat PTT Partial Thromboplastin Kirit Stat Prothrombin Time INR Stat Troponin & CK Cardiac Panel Stat 04/15/25 10:05 CT angio chest PE protocol Stat 04/15/25 12:10 Troponin I Stat Discontinued Medications Aspirin (Aspirin 81 Mg Chew Tab) 324 mg PO NOW ONE Stop: 04/15/25 10:04 Last Admin: 04/15/25 10:09 Dose: 324 mg Documented By: COLTEN Ceftriaxone Sodium 1,000 mg/ (Sodium Chloride) 100 mls @ 200 mls/hr IV NOW ONE Stop: 04/15/25 11:45 Last Admin: 04/15/25 12:29 Dose: 200 mls/hr Documented By: LINDA Azithromycin 500 mg/ Dextrose 250 mls @ 250 mls/hr IV NOW ONE Stop: 04/15/25 11:45 Morphine Sulfate (Morphine 4 Mg/Ml Inj) 4 mg IV NOW ONE Stop: 04/15/25 10:04 Last Admin: 04/15/25 10:09 Dose: 4 mg Documented By: COLTEN Morphine Sulfate (Morphine 4 Mg/Ml Inj) 4 mg IV NOW ONE Stop: 04/15/25 10:44 Last Admin: 04/15/25 10:47 Dose: 4 mg Documented By: COLTEN Ondansetron HCl (Ondansetron 4 Mg/2 Ml Inj) 4 mg IV NOW ONE Stop: 04/15/25 10:44 Last Admin: 04/15/25 10:47 Dose: 4 mg Documented By: COLTEN Vital Signs Vital signs: Vital Signs - 8 hr 04/15/25 09:58 04/15/25 11:00 04/15/25 11:00 Temperature 98.3 F Pulse Rate 77 71 Respiratory Rate 17 15 Blood Pressure 148/67 H 133/62 Pulse Oximetry 98 95 Oxygen Delivery Method Room Air Room Air 04/15/25 11:30 04/15/25 11:30 04/15/25 12:00 Temperature Pulse Rate 70 80 Respiratory Rate 14 16 Blood Pressure 124/58 L Pulse Oximetry 91 94 Oxygen Delivery Method 04/15/25 12:01 04/15/25 12:01 04/15/25 12:30 Temperature Pulse Rate 80 80 Respiratory Rate 24 18 Blood Pressure 144/66 H Pulse Oximetry 95 96 Oxygen Delivery Method 04/15/25 12:30 Temperature Pulse Rate Respiratory Rate Blood Pressure 175/64 H Pulse Oximetry Oxygen Delivery Method MDM - Chest Pain Lab Data 04/15/25 09:59 04/15/25 09:59 Labs: Lab Results 04/15/25 04/15/25 Range/Units 09:59 12:10 WBC 5.6 (4.5-11.0) X10^3/uL RBC 4.68 (4.0-5.2) X10^6/uL Hgb 15.0 (12.0-16.0) g/dL Hct 43.4 (36-46) % MCV 92.7 (80-100) fL MCH 32.1 (26-34) PG MCHC 34.6 (30-36) % RDW 12.7 (11.6-14.8) % Plt Count 193 (150-400) X10^3/uL Neut % (Auto) 49.4 L (50-75) % Lymph % (Auto) 39.8 (25-40) % [place] % (Auto) 7.7 (3-14) % Eos % (Auto) 2.2 (2-4) % Baso % (Auto) 0.9 (0-2) % Neut # (Auto) 2800 (1450-9825) /uL Lymph # (Auto) 2200 (6307-7073) /uL [place] # (Auto) 400 (0-900) /uL Eos # (Auto) 100 (0-450) /uL Baso # (Auto) 0 (0-100) /uL PT 10.7 (9.4-12.5) SECONDS INR 0.9 (0.9-1.3) APTT 31 (25.1-36.5) SECONDS Sodium 138 (137-145) mmol/L Potassium 3.4 (3.4-5.1) mmol/L Chloride 105 (98-107) mmol/L Carbon Dioxide 26 (22-32) mmol/L BUN 19 H (7-17) mg/dL Creatinine 0.93 (0.52-1.04) mg/dL Estimated GFR > 60 (>60) mL/min BUN/Creatinine Ratio 20.4 (6-22) Glucose 75 (70-99) mg/dL Calcium 9.3 (8.4-10.2) mg/dL Magnesium 2.1 (1.6-2.3) mg/dL Total Bilirubin 0.3 (0.2-1.3) mg/dL AST 21 (14-36) IU/L ALT 22 (<35) IU/L Alkaline Phosphatase 104 (38-126) U/L Total Creatine Kinase 27 L (30-135) U/L Troponin I < 0.012 < 0.012 (0.01-0.034) ng/mL NT-Pro-B Natriuret Pep 129 H (<125) pg/mL Total Protein 7.2 (6.3-8.2) g/dL Albumin 4.3 (3.5-5.0) g/dL Globulin 2.9 (1.7-4.1) g/dL Albumin/Globulin Ratio 1.5 (1.0-2.8) Lipase 85 (23-300) U/L Imaging Data CT scan - chest: Radiologist's Impression: [address] [address] [address] Scan Report Signed Patient: Adelaida Soares MR#: [id number] : 1955 Acct:[id number] Age/Sex: 69 / F Date of Service: 04/15/25 Loc: ED Accession Number: [id number] Procedure: CT angio chest PE protocol Ordering Provider: Jonathan Ocampo D.O. PROCEDURE: CT ANGIO CHEST PE PROTOCOL INDICATIONS: chest pain radiating to back / hx of stents TECHNIQUE: After the administration of intravenous contrast, 2 mm thick sections acquired from the pulmonary apices to the posterior costophrenic angles. 3-dimensional maximum intensity projection (MIP) coronal and sagittal reformats were then acquired through the thorax. For radiation dose reduction, the following was used: automated exposure control, adjustment of mA and/or kV according to patient size. COMPARISON: None. FINDINGS: Image quality: Diagnostic. Pulmonary arteries: Pulmonary arteries are normal in size, and demonstrate no intraluminal filling defects to suggest central pulmonary embolism. Lower Neck: No enlarged lymph nodes. Thyroid: No thyroid nodules which require sonographic follow up, per consensus guidelines. Axillae: No enlarged lymph nodes. Chest Wall: Unremarkable. Bones: Unremarkable. Lungs and Pleura: No pneumothorax or pleural effusions. For the exam is performed in exhalation with resulting in atelectasis within the bilateral dependent lobes. Partial mucous plugging and bronchial thickening within the bilateral, right greater than left, lower lobes (series 5, image 170). Heart: Mild cardiomegaly. Extensive left anterior descending coronary artery a high atherosclerotic calcifications. Thoracic Vessels: No aortic aneurysm. Mediastinum and Tresa: No enlarged lymph nodes. Esophagus: No wall thickening. No hiatal hernia. Upper Abdomen: Visualized upper abdomen solid organs and bowel loops appear normal. IMPRESSION: 1. No pulmonary embolus. 2. Findings concerning for infectious bronchitis in the bilateral lower lobes with debris versus mucous plugging in the posterior right lower lobe segmental bronchus. 3. Mild cardiomegaly with extensive calcifications of the left anterior descending coronary artery. Correlate with risk factors, symptoms, and consider cardiology referral versus lifestyle modifications. Chest x-ray: Radiologist's Impression: [address] [address] XRay Report Signed Patient: Adelaida Soares MR#: [id number] : 1955 Acct:[id number] Age/Sex: 69 / F Date of Service: 04/15/25 Loc: ED Accession Number: [id number] Procedure: XR chest 1V Ordering Provider: Jonathan Ocampo D.O. PROCEDURE: XR CHEST 1V INDICATIONS: Chest Pain TECHNIQUE: One view of the chest was acquired. COMPARISON: [facility], CR, XR CHEST 2V, 04/28/2024, 14:47. [facility], CR, XR CHEST 1V, 04/13/2023, 11:41. FINDINGS: Surgical changes and devices: None. Lungs and pleura: Lungs are clear. No pleural effusions or pneumothorax. Mediastinum: Mediastinal contours appear normal. Heart size is normal. Bones and chest wall: No suspicious bony lesions. Overlying soft tissues appear unremarkable. IMPRESSION: No acute cardiopulmonary abnormality is seen. ECG Data Interpretation: NSR HR 79 TX 164 QRS [address]-t wave change Unchanged from 09/24/23 [facility] Narrative Medical decision making narrative: All lab work, vital signs, nurse triage note, medication list, previous ER visits, and all imaging studies reviewed. WBC 5 point hemoglobin 15 platelet 193 sodium 130 potassium 3.4 chloride 105 CO2 is 26 BUN 19 creatinine 0.93. Two sets troponin negative BNP 129. CTA findings concerning for infectious bronchitis colitis and bilateral lobes with debris versus mucus plugging in the posterior right lower segmental bronchitis. Mild cardiomegaly with extensive calcification of the left anterior descending coronary artery. Patient given Rocephin and Zithromax aspirin morphine here. Case discussed with Dr. Paula for admission for admission. Discharge Plan Departure Patient Disposition: Admitted As Inpatient Clinical Impression: Pneumonia Admit Date/Time: 04/15/25 13:10 Admit Provider: Isidro Tejeda
--- NOTE | 2025-04-15 10:05 | DI.CT.S_ITS ---
PROCEDURE: CT ANGIO CHEST PE PROTOCOL INDICATIONS: chest pain radiating to back / hx of stents TECHNIQUE: After the administration of intravenous contrast, 2 mm thick sections acquired from the pulmonary apices to the posterior costophrenic angles. 3-dimensional maximum intensity projection (MIP) coronal and sagittal reformats were then acquired through the thorax. For radiation dose reduction, the following was used: automated exposure control, adjustment of mA and/or kV according to patient size. COMPARISON: None. FINDINGS: Image quality: Diagnostic. Pulmonary arteries: Pulmonary arteries are normal in size, and demonstrate no intraluminal filling defects to suggest central pulmonary embolism. Lower Neck: No enlarged lymph nodes. Thyroid: No thyroid nodules which require sonographic follow up, per consensus guidelines. Axillae: No enlarged lymph nodes. Chest Wall: Unremarkable. Bones: Unremarkable. Lungs and Pleura: No pneumothorax or pleural effusions. For the exam is performed in exhalation with resulting in atelectasis within the bilateral dependent lobes. Partial mucous plugging and bronchial thickening within the bilateral, right greater than left, lower lobes (series 5, image 170). Heart: Mild cardiomegaly. Extensive left anterior descending coronary artery a high atherosclerotic calcifications. Thoracic Vessels: No aortic aneurysm. Mediastinum and Tresa: No enlarged lymph nodes. Esophagus: No wall thickening. No hiatal hernia. Upper Abdomen: Visualized upper abdomen solid organs and bowel loops appear normal. IMPRESSION: 1. No pulmonary embolus. 2. Findings concerning for infectious bronchitis in the bilateral lower lobes with debris versus mucous plugging in the posterior right lower lobe segmental bronchus. 3. Mild cardiomegaly with extensive calcifications of the left anterior descending coronary artery. Correlate with risk factors, symptoms, and consider cardiology referral versus lifestyle modifications. Dictated by: Sander Chin M.D. on 04/15/2025 at 10:54 Approved by: Sander Chin M.D. on 04/15/2025 at 10:57
[2025-04-15] MEDS: MORPHINE 4 MG/ML INJ IV ×2 (10:09→10:47)
[2025-04-15] MEDS: ASPIRIN 81 MG CHEW TAB 324 MG PO (10:09)
[2025-04-15 10:10] LABS: Add Manual Diff / Slide Review NO; Hematocrit 43.4 % (36-46); Hemoglobin 15.0 g/dL (12.0-16.0); Lymphocytes Absolute Auto 2200 /uL (1100-4500); Mean Corpuscular HGB Conc 34.6 % (30-36); Mean Corpuscular Hemoglobin 32.1 PG (26-34); Mean Corpuscular Volume 92.7 fL (80-100); Platelet Count 193 X10^3/uL (150-400)
[2025-04-15 10:20] LABS: INR 0.9 (0.9-1.3); Prothrombin Time 10.7 SECONDS (9.4-12.5)
[2025-04-15 10:23] LABS: PTT Partial Thromboplastin Tim 31 SECONDS (25.1-36.5)
[2025-04-15 10:25] LABS: Alanine Aminotransferase 22 IU/L (<35); Albumin 4.3 g/dL (3.5-5.0); Albumin Globulin Ratio 1.5 (1.0-2.8); Alkaline Phosphatase 104 U/L (38-126); Blood Urea Nitrogen 19 mg/dL (7-17); Calcium 9.3 mg/dL (8.4-10.2); Carbon Dioxide 26 mmol/L (22-32); Chloride 105 mmol/L (98-107); Creatine Kinase 27 U/L (30-135); Estimated Glomerular Filt Rate > 60 mL/min (>60); Globulin 2.9 g/dL (1.7-4.1); Glucose 75 mg/dL (70-99); HEMOLYSIS < 15 (0-50); Lipase 85 U/L (23-300); Magnesium 2.1 mg/dL (1.6-2.3); Potassium 3.4 mmol/L (3.4-5.1); Sodium 138 mmol/L (137-145); Total Protein 7.2 g/dL (6.3-8.2)
[2025-04-15 10:37] LABS: NT-proBNP (BNP-Adult 18+) 129 pg/mL (<125); Troponin I < 0.012 ng/mL (0.01-0.034)
[2025-04-15] MEDS: ONDANSETRON 4 MG/2 ML INJ IV (10:47)
[2025-04-15 12:42] LABS: Troponin I < 0.012 ng/mL (0.01-0.034)
[2025-04-15] MEDS: AZITHROMYCIN 500 MG in DEXTROSE 5% IN WATER 250 ML 250 MG IV (13:16)
[2025-04-15] MEDS: HEPARIN 5,000 UNIT/ML VIAL 5000 UNIT SUBCUT ×2 (16:30→20:40)
--- NOTE | 2025-04-15 18:16 | P.HP_ITS ---
History of Present Illness History of Present Illness Date Patient Seen: 04/15/25 Chief complaint: Heart attack symptoms Narrative: Chief complaint: Chest pain feeling like heart attack 2 patient with findings consistent with bilateral bronchiectatic aspiration pneumonia on CT History of present illness: 04/15: 69-year-old female with a history coronary artery disease and previous myocardial ischemia had chest pain on and off that she said felt like heart attack but nitroglycerin did not relieve For a couple of nights while wearing CPAP patient has awakened up refluxing and choking on her gastric contents in bed CT of the chest: 1. No pulmonary embolus. 2. Findings concerning for infectious bronchitis in the bilateral lower lobes with debris versus mucous plugging in the posterior right lower lobe segmental bronchus. 3. Mild cardiomegaly with extensive calcifications of the left anterior descending coronary artery. Review of systems: No fevers chills rigors No abdominal pain diarrhea constipation No urinary symptoms No neurologic symptoms Physical exam: Elderly female in no acute distress HEENT unremarkable Heart rate and rhythm regular Lungs with bibasilar rhonchi Extremities no edema Neuro nonfocal Assessment and plan Aspiration pneumonia nocturnal from reflux while wearing CPAP multiple episodes * Switch antibiotics to Zosyn * Deescalate to Augmentin in 24 hours * Anti-reflux measures and of the bed empty stomach going to bed and PPI Chronic coronary artery disease * No signs of ischemia * Continue all goal directed medical therapy DVT prophylaxis: * Not indicated patient is ambulatory Code status: * Full code Disposition: * Inpatient * Likely discharge on Thursday 48 hours Time based billing: * 55 minutes were involved in evaluation of this patient including [id number] evaluation physical examination thorough history review of records review of objective findings including EKGs laboratory findings and imaging [facility] Medical History History of COVID-19 (11/2022) Anxiety Panic attacks Osteoarthritis Myocardial infarction (11/2008) Pre-diabetes PTSD (post-traumatic stress disorder) Cervicalgia Allergic rhinitis History of fall History of left heart catheterization (2011) ABI on CPAP HLD (hyperlipidemia) CHF (congestive heart failure) CAD (coronary artery disease) Hypertension Surgical History S/P cervical spinal fusion (~1996) Hx of elbow surgery Hx of tonsillectomy History of hysterectomy Hx of appendectomy S/p bilateral blepharoplasty Hx of heart artery stent (11/2008) Social History household members: friend(s) lives independently: Yes Smoking Status: Current every day smoker alcohol intake: never Meds Home Medications and Allergies Home Medications ?Medication ?Instructions ?Recorded ?Confirmed ?Type Vitamin D3 1 cap PO DAILY 07/21/1803/19 History albuterol sulfate 90 mcg/actuation 1 puff inhalation P RN PRN 07/21/18 04/15/25 History aerosol inhaler Shortness Of Breath aspirin 81 mg tablet,delayed 81 mg PO DAILY 07/21/18 1 06/15/24 History release furosemide 40 mg tablet 80 mg PO DAILY 07/21/1803/19 History metoprolol tartrate 25 mg tablet 25 mg PO BID 07/21/18 04/15/25 History famotidine 20 mg tablet (Pepcid) 40 mg PO BID 12/03/23 04/15/25 History isosorbide mononitrate 60 mg 60 mg PO DAILY 12/03/23 1 06/15/24 History tablet,extended release 24 hr potassium chloride 20 mEq 20 meq PO DAILY 12/03/23 History tablet,extended release acetaminophen 500 mg tablet 1,000 mg PO Q6H PRN Pain, Moderate 12/17/23 04/15/25 History TRAZADONE 50 mg PO .HS 04/15/25 History cyclobenzaprine 5 mg tablet 5 mg PO BID PRN muscle spa sm 04/15/25 04/15/25 History omalizumab 150 mg/mL subcutaneous 150 mg SUBCUT Q4W 04/15/25 History auto-injector Allergies Allergy/AdvReac Type Severity Reaction Status Date / Time amoxicillin Allergy Severe Hives Verified 04/15/25 09:57 bee venom protein (honey bee) Allergy Severe Anaphylaxis Verified 04/15/25 09:57 clindamycin Allergy Severe Hives Verified 04/15/25 09:57 meloxicam Allergy Severe Hives Verified 04/15/25 09:57 simvastatin Allergy Verified 04/15/25 09:57 venlafaxine Allergy Pt does Verified 04/15/25 09:57 not remember reaction gabapentin AdvReac Severe Hallucinati Verified 04/15/25 09:57 ng lisinopril AdvReac Severe Cough Verified 04/15/25 09:57 ramipril AdvReac Severe Cough Verified 04/15/25 09:57 benzocaine AdvReac Blisters Verified 04/15/25 09:57 in mouth Exam Vital Signs (past 8 hours): - 04/15/25 11:00 04/15/25 11:00 04/15/25 11:30 Temperature Pulse Rate 71 70 Respiratory Rate 15 14 Blood Pressure 133/62 Pulse Oximetry 95 91 Oxygen Delivery Method Room Air Oxygen Flow Rate 04/15/25 11:30 04/15/25 12:00 04/15/25 12:01 Temperature Pulse Rate 80 80 Respiratory Rate 16 24 Blood Pressure 124/58 L Pulse Oximetry 94 95 Oxygen Delivery Method Oxygen Flow Rate 04/15/25 12:01 04/15/25 12:30 04/15/25 12:30 Temperature Pulse Rate 80 Respiratory Rate 18 Blood Pressure 144/66 H 175/64 H Pulse Oximetry 96 Oxygen Delivery Method Oxygen Flow Rate 04/15/25 13:00 04/15/25 13:01 04/15/25 13:01 Temperature Pulse Rate 75 77 Respiratory Rate 13 14 Blood Pressure 138/65 Pulse Oximetry 95 95 Oxygen Delivery Method Oxygen Flow Rate 04/15/25 14:33 04/15/25 14:35 04/15/25 14:35 Temperature Pulse Rate 99 H 90 Respiratory Rate 21 Blood Pressure 134/60 Pulse Oximetry 97 95 Oxygen Delivery Method Room Air Oxygen Flow Rate 04/15/25 15:00 04/15/25 15:00 04/15/25 15:30 Temperature Pulse Rate 82 81 Respiratory Rate 13 12 Blood Pressure 110/53 L Pulse Oximetry 93 94 Oxygen Delivery Method Oxygen Flow Rate 04/15/25 15:30 04/15/25 16:00 Temperature 96.3 F L Pulse Rate 80 Respiratory Rate 16 Blood Pressure 115/54 L 130/64 Pulse Oximetry 96 Oxygen Delivery Method Oxygen Flow Rate 0 Oxygen Delivery Method Room Air Oxygen Flow Rate 0 Objective Labs 04/15/25 09:59 04/15/25 09:59 Labs: Laboratory Results - last 24 hr 04/15/25 04/15/25 09:59 12:10 WBC 5.6 RBC 4.68 Hgb 15.0 Hct 43.4 MCV 92.7 MCH 32.1 MCHC 34.6 RDW 12.7 Plt Count 193 Neut % (Auto) 49.4 L Lymph % (Auto) 39.8 [place] % (Auto) 7.7 Eos % (Auto) 2.2 Baso % (Auto) 0.9 Neut # (Auto) 2800 Lymph # (Auto) 2200 [place] # (Auto) 400 Eos # (Auto) 100 Baso # (Auto) 0 PT 10.7 INR 0.9 APTT 31 Sodium 138 Potassium 3.4 Chloride 105 Carbon Dioxide 26 BUN 19 H Creatinine 0.93 Estimated GFR > 60 BUN/Creatinine Ratio 20.4 Glucose 75 Calcium 9.3 Magnesium 2.1 Total Bilirubin 0.3 AST 21 ALT 22 Alkaline Phosphatase 104 Total Creatine Kinase 27 L Troponin I < 0.012 < 0.012 NT-Pro-B Natriuret Pep 129 H Total Protein 7.2 Albumin 4.3 Globulin 2.9 Albumin/Globulin Ratio 1.5 Lipase 85 Assessment & Plan Time-Based Coding :: [TOTAL MINUTES] spent with patient and on the chart (including review of chart, obtaining history, exam, reviewing outside data, placing orders, documenting exam and treatment plan, and counseling patient) on [DATE]. Quality VTE Deep Vein Thrombosis/Pulmonary Embolism Present on Admission: No
[2025-04-15] MEDS: metroNIDAZOLE 500 MG/100 ML PIGGYBACK 100 MG IV (19:50)
[2025-04-15] MEDS: DOXYCYCLINE 100 MG in SODIUM CHLORIDE 0.9% 100 ML IV (20:41)
[2025-04-15] MEDS: METOPROLOL IR 25 MG TABLET PO (20:41)
[2025-04-15] MEDS: FAMOTIDINE 20 MG TABLET 40 MG PO (20:41)
[2025-04-15] MEDS: FUROSEMIDE 40 MG TABLET PO (20:41)
[2025-04-15] MEDS: ISOSORBIDE MONONITRATE ER 30 MG TABLET 60 MG PO (20:44)
[2025-04-15] MEDS: MONTELUKAST 10 MG TABLET PO (20:45)
[2025-04-16] MEDS: metroNIDAZOLE 500 MG/100 ML PIGGYBACK 100 MG IV ×2 (03:51→11:07)
[2025-04-16 04:00] VITALS: BP 90/58; PULSE 75; RESP 17; TEMP 36.4; O2SAT 97
[2025-04-16 08:21] LABS: Add Manual Diff / Slide Review NO; Hematocrit 44.4 % (36-46); Hemoglobin 15.2 g/dL (12.0-16.0); Lymphocytes Absolute Auto 2600 /uL (1100-4500); Mean Corpuscular HGB Conc 34.2 % (30-36); Mean Corpuscular Hemoglobin 32.0 PG (26-34); Mean Corpuscular Volume 93.7 fL (80-100); Platelet Count 213 X10^3/uL (150-400)
[2025-04-16 09:00] VITALS: BP 115/61; PULSE 72; RESP 16; TEMP 36.4; O2SAT 94
[2025-04-16] MEDS: ATORVASTATIN 20 MG TABLET 40 MG PO (09:13)
[2025-04-16] MEDS: FUROSEMIDE 40 MG TABLET PO (09:13)
[2025-04-16] MEDS: METOPROLOL IR 25 MG TABLET PO (09:14)
[2025-04-16] MEDS: POTASSIUM CHLORIDE 20 MEQ TAB PO (09:14)
[2025-04-16] MEDS: ASPIRIN EC 81 MG TABLET PO (09:14)
[2025-04-16] MEDS: HEPARIN 5,000 UNIT/ML VIAL 5000 UNIT SUBCUT (09:15)
[2025-04-16] MEDS: FAMOTIDINE 20 MG TABLET 40 MG PO (09:15)
[2025-04-16] MEDS: DOXYCYCLINE 100 MG in SODIUM CHLORIDE 0.9% 100 ML IV (09:27)
--- NOTE | 2025-04-16 10:41 | P.DS_ITS ---
History of Present Illness History of Present Illness Date Patient Seen: 04/16/25 Chief complaint: Gastroesophageal reflux with aspiration pneumonia Narrative: Chief complaint: Chest pain feeling like heart attack 2 patient with findings consistent with bilateral bronchiectatic aspiration pneumonia on CT History of present illness: 04/15: 69-year-old female with a history coronary artery disease and previous myocardial ischemia had chest pain on and off that she said felt like heart attack but nitroglycerin did not relieve For a couple of nights while wearing CPAP patient has awakened up refluxing and choking on her gastric contents in bed CT of the chest: 1. No pulmonary embolus. 2. Findings concerning for infectious bronchitis in the bilateral lower lobes with debris versus mucous plugging in the posterior right lower lobe segmental bronchus. 3. Mild cardiomegaly with extensive calcifications of the left anterior descending coronary artery. Hospital course: 04/16: No fevers overnight symptoms are improved patient discharged on oral cefdinir anti-reflux strategies Protonix and sucralfate for esophagitis Review of systems: No fevers chills rigors No abdominal pain diarrhea constipation No urinary symptoms No neurologic symptoms Physical exam: Elderly female in no acute distress HEENT unremarkable Heart rate and rhythm regular Lungs with bibasilar rhonchi Extremities no edema Neuro nonfocal Assessment and plan Aspiration pneumonia nocturnal from reflux while wearing CPAP multiple episodes * Switch to oral cefdinir * Anti-reflux measures and of the bed empty stomach going to bed and PPI Chronic coronary artery disease * No signs of ischemia * Continue all goal directed medical therapy DVT prophylaxis: * Not indicated patient is ambulatory Code status: * Full code Disposition: * Patient improved much more quickly than anticipated * Discharge today Time based billing: * 5 minutes were involved in evaluation of this patient including [id number] evaluation physical examination thorough history review of records review of objective findings including EKGs laboratory findings and imaging Discharge Providers Provider Date of admission: 04/15/25 13:10 Discharge Date: 04/16/25 Discharge provider: Isidro Tejeda MD Exam Vital Signs (past 8 hours): - 04/16/25 04:00 04/16/25 09:00 Temperature 97.6 F 97.5 F L Pulse Rate 75 72 Respiratory Rate 17 16 Blood Pressure 90/58 L 115/61 Pulse Oximetry 97 94 Oxygen Flow Rate 0 0 Oxygen Delivery Method Room Air Oxygen Flow Rate 0 Objective Labs 04/16/25 08:09 04/15/25 09:59 Labs: Laboratory Results - last 24 hr 04/15/25 04/16/25 12:10 08:09 WBC 5.8 RBC 4.74 Hgb 15.2 Hct 44.4 MCV 93.7 MCH 32.0 MCHC 34.2 RDW 12.8 Plt Count 213 Neut % (Auto) 44.6 L Lymph % (Auto) 44.8 H Mcdowell % (Auto) 6.8 Eos % (Auto) 2.8 Baso % (Auto) 1.0 Neut # (Auto) 2600 Lymph # (Auto) 2600 Mcdowell # (Auto) 400 Eos # (Auto) 200 Baso # (Auto) 100 Troponin I < 0.012 PFSH Medical History History of COVID-19 (11/2022) Anxiety Panic attacks Osteoarthritis Myocardial infarction (11/2008) Pre-diabetes PTSD (post-traumatic stress disorder) Cervicalgia Allergic rhinitis History of fall History of left heart catheterization (2011) ABI on CPAP HLD (hyperlipidemia) CHF (congestive heart failure) CAD (coronary artery disease) Hypertension Surgical History S/P cervical spinal fusion (~1996) Hx of elbow surgery Hx of tonsillectomy History of hysterectomy Hx of appendectomy S/p bilateral blepharoplasty Hx of heart artery stent (11/2008) Social History household members: friend(s) lives independently: Yes Smoking Status: Current every day smoker alcohol intake: never Discharge Plan Discharge Plan Patient Disposition: Home Discharge orders & Medications Prescriptions: New pantoprazole [Protonix] [address] for susp in packet 40 mg PO BID Qty: 60 0RF sucralfate [Carafate] 100 mg/mL suspension 10 ml PO QACHS Qty: 414 0RF cefdinir 300 mg capsule 300 mg PO BID Qty: 14 0RF Continued furosemide 40 mg Tablet 80 mg PO DAILY aspirin 81 mg Tablet,Delayed Release (Dr/Ec) 81 mg PO DAILY albuterol sulfate 90 mcg/actuation Hfa Aerosol Inhaler 1 puff INHALATION PRN PRN (Reason: Shortness Of Breath) metoprolol tartrate 25 mg Tablet 25 mg PO BID Vitamin D3 1 cap PO DAILY isosorbide mononitrate 60 mg Tablet Extended Release 24 Hr 60 mg PO DAILY potassium chloride 20 mEq Tablet Extended Release 20 meq PO DAILY famotidine [Pepcid] 20 mg tablet 40 mg PO BID acetaminophen 500 mg Tablet 1,000 mg PO Q6H PRN (Reason: Pain, Moderate) TRAZADONE 50 mg 50 mg PO .HS cyclobenzaprine 5 mg tablet 5 mg PO BID PRN (Reason: muscle spasm) omalizumab 150 mg/mL auto-injector 150 mg SUBCUT Q4W Visit Report/Discharge Packet Stand Alone Forms: Patient Portal/API Quality VTE Deep Vein Thrombosis/Pulmonary Embolism Present on Admission: No
--- NOTE | 2025-04-16 11:02 | PC.NURSE ---
Assess- Patient is independent in room, her lung sounds are with wheezes throughtout marmolejo. She is on RA. She has one more iv antibiotic to infuse and then she will be going home. She denies pain or discomfort at this.
== END 2025-04-16 13:00 | disposition home or self-care (01) | DRG 179 ==
LOC: ED 11:43 → AC 13:10
PROVIDERS: Admitting Provider Internal Medicine; Emergency Provider Family Medicine; Referring Provider Family Medicine; Visit Provider Internal Medicine
DX: J69.0 Pneumonitis due to inhalation of food and vomit (principal); I25.10 Atherosclerotic heart disease of native coronary artery without angina pectoris; K21.9 Gastro-esophageal reflux disease without esophagitis; F17.200 Nicotine dependence, unspecified, uncomplicated; I11.0 Hypertensive heart disease with heart failure; I50.9 Heart failure, unspecified; Z86.79 Personal history of other diseases of the circulatory system
CPT/HCPCS: 36415; 71045; 71275; 80053; 82550; 83690; 83735; 83880; 84484; 85025; 85610; 85730; 93005; 96365; 96367; 96375; 96376; 99284; A9270; J0696; J1644; J2272; J2405; J7050; J7060; Q9967